=== PATIENT | female | born 1935 | race Caucasian/White ===

== ENCOUNTER 2017-06-22 05:02 | Emergency (ER) | payer MEDICARE, BC ==
[2017-06-22] MEDS: IBUPROFEN 600 MG TAB PO (05:43)
== END 2017-06-22 11:34 | disposition home or self-care (01) ==
LOC: E/R 05:02
DX: S09.90XA Unspecified injury of head, initial encounter (principal); S51.811A Laceration without foreign body of right forearm, initial encounter; I10 Essential (primary) hypertension; E11.9 Type 2 diabetes mellitus without complications; R51 Headache; W06.XXXA Fall from bed, initial encounter; Y92.9 Unspecified place or not applicable; Z79.82 Long term (current) use of aspirin; Z79.84 Long term (current) use of oral hypoglycemic drugs
CPT/HCPCS: 70450; 71045; 73110-RT; 99284-25

== ENCOUNTER 2017-06-23 12:43 | Inpatient (IN) | payer MEDICARE, BC ==
[2017-06-23 16:22] LABS: ADD MAN DIFF? NO
[2017-06-23 16:24] LABS: BASOPHIL # 0.1 10^3/ul (0.0-0.1); BASOPHILS % 0.5 % (0.0-2.0); EOSINOPHILS # 0.2 10^3/ul (0.0-0.5); EOSINOPHILS % 1.7 % (0.0-7.0); HEMATOCRIT 34.5 % (37.0-47.0); HEMOGLOBIN 10.8 g/dl (12.0-16.0); LYMPHOCYTES % 30.9 % (15.0-51.0); MEAN CORPUSCULAR HEMOGLOBIN 25.6 pg (29.0-33.0); MEAN CORPUSCULAR HGB CONC 31.3 g/dl (32.0-37.0); MEAN CORPUSCULAR VOLUME 81.8 fl (82.0-101.0); MEAN PLATELET VOLUME 9.2 fl (7.4-10.4); MONOCYTE # 0.8 10^3/ul (0.3-0.9); MONOCYTES % 6.2 % (0.0-11.0); NEUTROPHIL # 7.7 10^3/ul (1.6-7.5); PLATELET COUNT 288 10^3/UL (140-415); RED BLOOD COUNT 4.22 10^6/ul (4.20-5.40); RED CELL DISTRIBUTION WIDTH 14.3 % (11.5-14.5)
[2017-06-23 16:24] LABS: WHITE BLOOD COUNT 12.9 10^3/ul (4.8-10.8)
[2017-06-23] MEDS: ASPIRIN 325 MG TAB PO (16:35)
[2017-06-23 16:40] LABS: INR 0.93; PROTIME 12.6 Sec (11.9-14.9)
[2017-06-23 16:41] LABS: PARTIAL THROMBOPLASTIN TIME 28.6 Sec (25.0-35.0)
[2017-06-23 16:43] LABS: ALANINE AMINOTRANSFERASE 25 IU/L (13-69); ALBUMIN 4.1 g/dl (3.3-4.9); ALBUMIN/GLOBULIN RATIO 1.28; ALKALINE PHOSPHATASE 78 IU/L (42-121); ANION GAP 16 (8-16); ASPARTATE AMINO TRANSFERASE 15 IU/L (15-46); BILIRUBIN,INDIRECT 0.3 mg/dl (0-1.1); BILIRUBIN,TOTAL 0.3 mg/dl (0.2-1.3); BLOOD UREA NITROGEN 13 mg/dl (7-20); CALCIUM 9.1 mg/dl (8.4-10.2); CARBON DIOXIDE 30 mmol/L (21-31); CHLORIDE 102 mmol/L (97-110); CREATININE 0.75 mg/dl (0.44-1.00); GLUCOSE 92 mg/dl (70-220); POTASSIUM 3.5 mmol/L (3.5-5.1); SODIUM 144 mmol/L (135-144); TOTAL PROTEIN 7.3 g/dl (6.1-8.1)
[2017-06-23 16:56] LABS: TROPONIN-I < 0.012 ng/ml (0.00-0.12)
[2017-06-23] MEDS ORDERED: ACETAMINOPHEN 325 MG TAB PO (18:00)
[2017-06-23] MEDS ORDERED: ONDANSETRON 4 MG INJ IV (18:00)
[2017-06-23] MEDS ORDERED: GLUCAGON 1 MG INJ IM (23:00)
[2017-06-23] MEDS ORDERED: DEXTROSE 50% 50 ML SYRINGE IV ×2 (23:00)
[2017-06-23] MEDS ORDERED: ALPRAZOLAM 1 MG TAB PO (23:00)
[2017-06-23] MEDS ORDERED: MECLIZINE 25 MG TAB PO (23:00)
[2017-06-23] MEDS ORDERED: GLUCOSE GEL 15 GRAM TUBE BUCCAL (23:00)
[2017-06-23] MEDS ORDERED: GLUCOSE GEL 15 GRAM TUBE PO ×2 (23:00)
[2017-06-23] MEDS: CEFTRIAXONE 1 GM/50 ML (PMX) 50 ML IVPB (23:44)
[2017-06-24] MEDS: INSULIN ASPART [NOVOLOG] 3 ML PEN SC ×5 (08:00→20:30)
[2017-06-24 08:34] LABS: ADD MAN DIFF? NO
[2017-06-24 08:53] LABS: BASOPHILS % 0.4 % (0.0-2.0); EOSINOPHILS # 0.2 10^3/ul (0.0-0.5); EOSINOPHILS % 1.9 % (0.0-7.0); HEMATOCRIT 33.1 % (37.0-47.0); HEMOGLOBIN 10.5 g/dl (12.0-16.0); LYMPHOCYTES # 2.7 10^3/ul (0.8-2.9); LYMPHOCYTES % 29.5 % (15.0-51.0); MEAN CORPUSCULAR HEMOGLOBIN 25.9 pg (29.0-33.0); MEAN CORPUSCULAR HGB CONC 31.7 g/dl (32.0-37.0); MEAN CORPUSCULAR VOLUME 81.5 fl (82.0-101.0); MEAN PLATELET VOLUME 9.2 fl (7.4-10.4); MONOCYTE # 0.5 10^3/ul (0.3-0.9); MONOCYTES % 5.6 % (0.0-11.0); NEUTROPHIL # 5.6 10^3/ul (1.6-7.5); NEUTROPHILS % 61.8 % (39.0-77.0); PLATELET COUNT 278 10^3/UL (140-415); RED BLOOD COUNT 4.06 10^6/ul (4.20-5.40); RED CELL DISTRIBUTION WIDTH 14.2 % (11.5-14.5)
[2017-06-24] MEDS: ASPIRIN (EC) 325 MG TAB PO (09:05)
[2017-06-24] MEDS: metFORMIN 850 MG TAB PO ×2 (09:05→17:56)
[2017-06-24] MEDS: PAROXETINE 10 MG TAB PO (09:05)
[2017-06-24] MEDS: ENOXAPARIN 30 MG/0.3 ML SYG SC (09:07)
[2017-06-24 09:28] LABS: CHOL/HDL RATIO 6.8 RATIO; HDL CHOLESTEROL 32 mg/dl (33-92); LDL CHOLESTEROL,CALCULATED 153 mg/dl; TRIGLYCERIDES 177 mg/dl (0-149)
[2017-06-24 09:28] LABS: CHOLESTEROL 220 mg/dl (100-200)
[2017-06-24 09:40] LABS: ADD UMIC YES; UR ASCORBIC ACID NEGATIVE (NEGATIVE); UR BILIRUBIN (Dip) NEGATIVE (NEGATIVE); UR BLOOD (Dip) NEGATIVE (NEGATIVE); UR CLARITY CLEAR (CLEAR); UR COLOR YELLOW (YELLOW); UR GLUCOSE (Dip) NEGATIVE (NEGATIVE); UR KETONES (Dip) NEGATIVE (NEGATIVE); UR LEUKOCYTE ESTERASE (Dip) TRACE Leu/ul (NEGATIVE); UR MUCUS FEW /HPF (NONE SEEN); UR NITRITE (Dip) NEGATIVE (NEGATIVE); UR RBC 0 /HPF (0-5); UR SPECIFIC GRAVITY (Dip) 1.013 (1.003-1.030); UR TOTAL PROTEIN (Dip) NEGATIVE (NEGATIVE); UR UROBILINOGEN (Dip) NEGATIVE (NEGATIVE); UR WBC 3 /HPF (0-5)
[2017-06-24] MEDS: ACETAMINOPHEN 500 MG TAB PO (12:42)
[2017-06-24] MEDS: hydrALAzine 20 MG INJ IV (18:25)
[2017-06-24] MEDS: ATORVASTATIN 40 MG TAB PO (20:31)
[2017-06-24] MEDS: ALPRAZOLAM 0.25 MG TAB PO (20:59)
[2017-06-24] MEDS: CEFTRIAXONE 1 GM/50 ML (PMX) 50 ML IVPB (22:39)
[2017-06-25] MEDS: hydrALAzine 20 MG INJ IV ×2 (06:10→14:19)
[2017-06-25] MEDS: INSULIN ASPART [NOVOLOG] 3 ML PEN SC ×4 (08:00→20:37)
[2017-06-25] MEDS: ASPIRIN (EC) 325 MG TAB PO (08:14)
[2017-06-25] MEDS: metFORMIN 850 MG TAB PO ×2 (08:15→18:19)
[2017-06-25] MEDS: ACETAMINOPHEN 500 MG TAB PO (08:15)
[2017-06-25] MEDS: PAROXETINE 10 MG TAB PO (08:15)
[2017-06-25] MEDS: ENOXAPARIN 30 MG/0.3 ML SYG SC (08:17)
[2017-06-25 09:07] LABS: ADD MAN DIFF? NO
[2017-06-25 09:19] LABS: BASOPHIL # 0.1 10^3/ul (0.0-0.1); BASOPHILS % 0.6 % (0.0-2.0); EOSINOPHILS # 0.1 10^3/ul (0.0-0.5); EOSINOPHILS % 1.4 % (0.0-7.0); HEMATOCRIT 34.2 % (37.0-47.0); HEMOGLOBIN 11.3 g/dl (12.0-16.0); LYMPHOCYTES # 1.9 10^3/ul (0.8-2.9); LYMPHOCYTES % 18.6 % (15.0-51.0); MEAN CORPUSCULAR HEMOGLOBIN 26.3 pg (29.0-33.0); MEAN CORPUSCULAR VOLUME 79.5 fl (82.0-101.0); MEAN PLATELET VOLUME 9.8 fl (7.4-10.4); MONOCYTE # 0.6 10^3/ul (0.3-0.9); MONOCYTES % 5.6 % (0.0-11.0); NEUTROPHIL # 7.3 10^3/ul (1.6-7.5); NEUTROPHILS % 73.2 % (39.0-77.0); PLATELET COUNT 268 10^3/UL (140-415); RED CELL DISTRIBUTION WIDTH 14.5 % (11.5-14.5)
[2017-06-25 09:19] LABS: WHITE BLOOD COUNT 9.9 10^3/ul (4.8-10.8)
[2017-06-25 09:21] LABS: POSITIVE DIFF @See below
[2017-06-25 09:45] LABS: BLOOD UREA NITROGEN 14 mg/dl (7-20); CALCIUM 9.1 mg/dl (8.4-10.2); CARBON DIOXIDE 27 mmol/L (21-31); CHLORIDE 104 mmol/L (97-110); CREATININE 0.61 mg/dl (0.44-1.00); GLUCOSE 112 mg/dl (70-220); SODIUM 143 mmol/L (135-144)
[2017-06-25 09:48] LABS: ANION GAP 15 (8-16); POTASSIUM 3.4 mmol/L (3.5-5.1)
[2017-06-25] MEDS: ATORVASTATIN 40 MG TAB PO (20:38)
[2017-06-25] MEDS: ALPRAZOLAM 0.25 MG TAB PO (21:19)
[2017-06-26] MEDS: INSULIN ASPART [NOVOLOG] 3 ML PEN SC ×4 (08:00→20:56)
[2017-06-26] MEDS: metFORMIN 850 MG TAB PO ×2 (08:12→18:13)
[2017-06-26] MEDS: PAROXETINE 10 MG TAB PO (08:12)
[2017-06-26] MEDS: ASPIRIN (EC) 325 MG TAB PO (08:13)
[2017-06-26] MEDS: ENOXAPARIN 30 MG/0.3 ML SYG SC (08:14)
[2017-06-26 09:22] LABS: ADD MAN DIFF? NO
[2017-06-26 09:29] LABS: WHITE BLOOD COUNT 9.7 10^3/ul (4.8-10.8)
[2017-06-26 09:29] LABS: BASOPHIL # 0.1 10^3/ul (0.0-0.1); BASOPHILS % 0.5 % (0.0-2.0); EOSINOPHILS # 0.1 10^3/ul (0.0-0.5); EOSINOPHILS % 1.2 % (0.0-7.0); HEMATOCRIT 31.9 % (37.0-47.0); HEMOGLOBIN 10.2 g/dl (12.0-16.0); LYMPHOCYTES # 2.7 10^3/ul (0.8-2.9); MEAN CORPUSCULAR HEMOGLOBIN 25.4 pg (29.0-33.0); MEAN CORPUSCULAR VOLUME 79.6 fl (82.0-101.0); MEAN PLATELET VOLUME 9.4 fl (7.4-10.4); MONOCYTE # 0.8 10^3/ul (0.3-0.9); MONOCYTES % 7.9 % (0.0-11.0); PLATELET COUNT 268 10^3/UL (140-415); RED BLOOD COUNT 4.01 10^6/ul (4.20-5.40); RED CELL DISTRIBUTION WIDTH 14.9 % (11.5-14.5)
[2017-06-26 09:57] LABS: ANION GAP 13 (8-16); BLOOD UREA NITROGEN 17 mg/dl (7-20); CALCIUM 9.4 mg/dl (8.4-10.2); CARBON DIOXIDE 28 mmol/L (21-31); CHLORIDE 104 mmol/L (97-110); CREATININE 0.68 mg/dl (0.44-1.00); GLUCOSE 100 mg/dl (70-220); POTASSIUM 3.4 mmol/L (3.5-5.1); SODIUM 142 mmol/L (135-144)
[2017-06-26] MEDS: POTASSIUM CHLORIDE 20 MEQ POWDER FOR ORAL SOLN PO (17:14)
[2017-06-26] MEDS ORDERED: ONDANSETRON 4 MG INJ IV (20:55)
[2017-06-26] MEDS: ATORVASTATIN 40 MG TAB PO (21:00)
[2017-06-26] MEDS: hydrALAzine 20 MG INJ IV (21:09)
[2017-06-27] MEDS: PANTOPRAZOLE (EC) 40 MG TAB PO (05:55)
[2017-06-27] MEDS: ACETAMINOPHEN 500 MG TAB PO (06:44)
[2017-06-27 07:33] LABS: ADD MAN DIFF? NO
[2017-06-27 07:49] LABS: BASOPHIL # 0.1 10^3/ul (0.0-0.1); BASOPHILS % 0.5 % (0.0-2.0); EOSINOPHILS # 0.1 10^3/ul (0.0-0.5); EOSINOPHILS % 1.4 % (0.0-7.0); HEMATOCRIT 31.5 % (37.0-47.0); LYMPHOCYTES # 3.1 10^3/ul (0.8-2.9); LYMPHOCYTES % 30.8 % (15.0-51.0); MEAN CORPUSCULAR HEMOGLOBIN 25.4 pg (29.0-33.0); MEAN CORPUSCULAR HGB CONC 31.7 g/dl (32.0-37.0); MEAN CORPUSCULAR VOLUME 80.2 fl (82.0-101.0); MEAN PLATELET VOLUME 9.7 fl (7.4-10.4); MONOCYTE # 0.8 10^3/ul (0.3-0.9); MONOCYTES % 7.9 % (0.0-11.0); NEUTROPHIL # 5.9 10^3/ul (1.6-7.5); PLATELET COUNT 268 10^3/UL (140-415); RED BLOOD COUNT 3.93 10^6/ul (4.20-5.40); RED CELL DISTRIBUTION WIDTH 15.1 % (11.5-14.5)
[2017-06-27] MEDS: INSULIN ASPART [NOVOLOG] 3 ML PEN SC ×4 (08:00→20:17)
[2017-06-27 08:16] LABS: ANION GAP 15 (8-16); BLOOD UREA NITROGEN 19 mg/dl (7-20); CALCIUM 9.2 mg/dl (8.4-10.2); CARBON DIOXIDE 27 mmol/L (21-31); CHLORIDE 106 mmol/L (97-110); CREATININE 0.73 mg/dl (0.44-1.00); GLUCOSE 102 mg/dl (70-220); POTASSIUM 3.6 mmol/L (3.5-5.1); SODIUM 144 mmol/L (135-144)
[2017-06-27] MEDS: PAROXETINE 10 MG TAB PO (09:34)
[2017-06-27] MEDS: ASPIRIN (EC) 325 MG TAB PO (09:36)
[2017-06-27] MEDS: ENOXAPARIN 30 MG/0.3 ML SYG SC (09:40)
[2017-06-27] MEDS: metFORMIN 850 MG TAB PO ×2 (09:58→17:19)
[2017-06-27] MEDS: ATORVASTATIN 40 MG TAB PO (20:17)
[2017-06-27] MEDS: ALPRAZOLAM 0.25 MG TAB PO (21:18)
[2017-06-28] MEDS: PANTOPRAZOLE (EC) 40 MG TAB PO (06:18)
[2017-06-28] MEDS: INSULIN ASPART [NOVOLOG] 3 ML PEN SC ×4 (08:00→20:59)
[2017-06-28] MEDS: metFORMIN 850 MG TAB PO ×3 (08:00→17:25)
[2017-06-28] MEDS: ASPIRIN (EC) 325 MG TAB PO (08:53)
[2017-06-28] MEDS: ENOXAPARIN 30 MG/0.3 ML SYG SC (08:55)
[2017-06-28] MEDS: PAROXETINE 10 MG TAB PO ×2 (08:56→10:00)
[2017-06-28] MEDS: ATORVASTATIN 40 MG TAB PO (20:59)
[2017-06-28] MEDS: ALPRAZOLAM 0.25 MG TAB PO (21:00)
[2017-06-29] MEDS: PANTOPRAZOLE (EC) 40 MG TAB PO (05:51)
[2017-06-29] MEDS: INSULIN ASPART [NOVOLOG] 3 ML PEN SC ×4 (08:00→20:32)
[2017-06-29] MEDS: PAROXETINE 10 MG TAB PO (09:53)
[2017-06-29] MEDS: ASPIRIN (EC) 325 MG TAB PO (09:54)
[2017-06-29] MEDS: ENOXAPARIN 30 MG/0.3 ML SYG SC (09:54)
[2017-06-29] MEDS: metFORMIN 850 MG TAB PO ×2 (10:08→17:41)
[2017-06-29] MEDS: ATORVASTATIN 40 MG TAB PO (20:28)
[2017-06-29] MEDS: ALPRAZOLAM 0.25 MG TAB PO (20:31)
[2017-06-30] MEDS: PANTOPRAZOLE (EC) 40 MG TAB PO (06:51)
[2017-06-30] MEDS: INSULIN ASPART [NOVOLOG] 3 ML PEN SC ×4 (07:45→20:56)
[2017-06-30] MEDS: metFORMIN 850 MG TAB PO ×2 (07:46→18:05)
[2017-06-30] MEDS: PAROXETINE 10 MG TAB PO (09:04)
[2017-06-30] MEDS: ASPIRIN (EC) 325 MG TAB PO (09:04)
[2017-06-30] MEDS: ENOXAPARIN 30 MG/0.3 ML SYG SC (09:05)
[2017-06-30 09:10] LABS: ADD MAN DIFF? NO
[2017-06-30 09:35] LABS: ANION GAP 12 (8-16); BLOOD UREA NITROGEN 18 mg/dl (7-20); CALCIUM 9.2 mg/dl (8.4-10.2); CARBON DIOXIDE 30 mmol/L (21-31); CHLORIDE 105 mmol/L (97-110); CREATININE 0.62 mg/dl (0.44-1.00); GLUCOSE 96 mg/dl (70-220); POTASSIUM 3.5 mmol/L (3.5-5.1); SODIUM 143 mmol/L (135-144)
[2017-06-30 10:07] LABS: WHITE BLOOD COUNT 8.7 10^3/ul (4.8-10.8)
[2017-06-30 10:07] LABS: BASOPHILS % 0.5 % (0.0-2.0); EOSINOPHILS # 0.2 10^3/ul (0.0-0.5); EOSINOPHILS % 1.9 % (0.0-7.0); HEMATOCRIT 32.1 % (37.0-47.0); HEMOGLOBIN 10.1 g/dl (12.0-16.0); LYMPHOCYTES # 2.6 10^3/ul (0.8-2.9); LYMPHOCYTES % 30.2 % (15.0-51.0); MEAN CORPUSCULAR HEMOGLOBIN 25.5 pg (29.0-33.0); MEAN CORPUSCULAR HGB CONC 31.5 g/dl (32.0-37.0); MEAN CORPUSCULAR VOLUME 81.1 fl (82.0-101.0); MEAN PLATELET VOLUME 10.2 fl (7.4-10.4); MONOCYTE # 0.7 10^3/ul (0.3-0.9); MONOCYTES % 8.4 % (0.0-11.0); NEUTROPHIL # 5.1 10^3/ul (1.6-7.5); NEUTROPHILS % 58.4 % (39.0-77.0); PLATELET COUNT 258 10^3/UL (140-415); RED BLOOD COUNT 3.96 10^6/ul (4.20-5.40); RED CELL DISTRIBUTION WIDTH 15.3 % (11.5-14.5)
[2017-06-30] MEDS: LISINOPRIL 5 MG TAB PO (15:29)
[2017-06-30] MEDS: ATORVASTATIN 40 MG TAB PO (20:52)
[2017-06-30] MEDS: ALPRAZOLAM 0.25 MG TAB PO (20:53)
[2017-07-01] MEDS: PANTOPRAZOLE (EC) 40 MG TAB PO (07:18)
[2017-07-01] MEDS: INSULIN ASPART [NOVOLOG] 3 ML PEN SC ×4 (08:00→21:00)
[2017-07-01 08:08] LABS: ADD MAN DIFF? NO
[2017-07-01 08:16] LABS: BASOPHIL # 0.1 10^3/ul (0.0-0.1); BASOPHILS % 0.5 % (0.0-2.0); EOSINOPHILS # 0.2 10^3/ul (0.0-0.5); EOSINOPHILS % 2.3 % (0.0-7.0); HEMATOCRIT 32.3 % (37.0-47.0); HEMOGLOBIN 10.3 g/dl (12.0-16.0); LYMPHOCYTES % 33.1 % (15.0-51.0); MEAN CORPUSCULAR HEMOGLOBIN 25.9 pg (29.0-33.0); MEAN CORPUSCULAR HGB CONC 31.9 g/dl (32.0-37.0); MEAN CORPUSCULAR VOLUME 81.2 fl (82.0-101.0); MONOCYTE # 0.6 10^3/ul (0.3-0.9); NEUTROPHIL # 5.1 10^3/ul (1.6-7.5); NEUTROPHILS % 56.6 % (39.0-77.0); PLATELET COUNT 262 10^3/UL (140-415); RED BLOOD COUNT 3.98 10^6/ul (4.20-5.40); RED CELL DISTRIBUTION WIDTH 15.2 % (11.5-14.5)
[2017-07-01 08:16] LABS: WHITE BLOOD COUNT 9.1 10^3/ul (4.8-10.8)
[2017-07-01 08:32] LABS: ANION GAP 13 (8-16); BLOOD UREA NITROGEN 20 mg/dl (7-20); CALCIUM 9.1 mg/dl (8.4-10.2); CARBON DIOXIDE 29 mmol/L (21-31); CHLORIDE 105 mmol/L (97-110); CREATININE 0.69 mg/dl (0.44-1.00); GLUCOSE 87 mg/dl (70-220); POTASSIUM 3.4 mmol/L (3.5-5.1); SODIUM 144 mmol/L (135-144)
[2017-07-01] MEDS: metFORMIN 850 MG TAB PO ×2 (08:49→18:14)
[2017-07-01] MEDS: ASPIRIN (EC) 325 MG TAB PO (08:49)
[2017-07-01] MEDS: PAROXETINE 10 MG TAB PO (08:50)
[2017-07-01] MEDS: LISINOPRIL 5 MG TAB PO (08:51)
[2017-07-01] MEDS: ENOXAPARIN 30 MG/0.3 ML SYG SC (08:57)
[2017-07-01] MEDS ORDERED: POTASSIUM CHLORIDE (SR) 8 MEQ CAP PO (12:00)
[2017-07-01] MEDS: POTASSIUM CHLORIDE (SR) 20 MEQ TAB PO (12:11)
[2017-07-01] MEDS: ATORVASTATIN 40 MG TAB PO (20:14)
[2017-07-01] MEDS: ALPRAZOLAM 0.25 MG TAB PO (20:18)
[2017-07-02] MEDS: PANTOPRAZOLE (EC) 40 MG TAB PO (06:22)
[2017-07-02] MEDS: metFORMIN 850 MG TAB PO ×2 (08:00→17:31)
[2017-07-02] MEDS: INSULIN ASPART [NOVOLOG] 3 ML PEN SC ×4 (08:00→21:00)
[2017-07-02] MEDS: PAROXETINE 10 MG TAB PO (08:26)
[2017-07-02] MEDS: ENOXAPARIN 30 MG/0.3 ML SYG SC (08:28)
[2017-07-02] MEDS: ASPIRIN (EC) 325 MG TAB PO (08:28)
[2017-07-02] MEDS: LISINOPRIL 5 MG TAB PO (08:29)
[2017-07-02] MEDS: ATORVASTATIN 40 MG TAB PO (20:42)
[2017-07-02] MEDS: ACETAMINOPHEN 500 MG TAB PO (20:42)
[2017-07-02] MEDS: ALPRAZOLAM 0.25 MG TAB PO (20:47)
[2017-07-03] MEDS: PANTOPRAZOLE (EC) 40 MG TAB PO (06:33)
[2017-07-03] MEDS: INSULIN ASPART [NOVOLOG] 3 ML PEN SC ×4 (08:00→21:00)
[2017-07-03] MEDS: PAROXETINE 10 MG TAB PO (09:02)
[2017-07-03] MEDS: LISINOPRIL 5 MG TAB PO ×2 (09:03→21:26)
[2017-07-03] MEDS: metFORMIN 850 MG TAB PO ×2 (09:03→17:13)
[2017-07-03] MEDS: ASPIRIN (EC) 325 MG TAB PO (09:03)
[2017-07-03] MEDS: ENOXAPARIN 30 MG/0.3 ML SYG SC (09:06)
[2017-07-03] MEDS: ACETAMINOPHEN 500 MG TAB PO (11:04)
[2017-07-03] MEDS: ATORVASTATIN 40 MG TAB PO (21:25)
[2017-07-03] MEDS: ALPRAZOLAM 0.25 MG TAB PO (21:33)
[2017-07-04] MEDS: PANTOPRAZOLE (EC) 40 MG TAB PO (06:01)
[2017-07-04 07:45] LABS: ADD MAN DIFF? NO
[2017-07-04 07:49] LABS: BASOPHIL # 0.1 10^3/ul (0.0-0.1); BASOPHILS % 0.6 % (0.0-2.0); EOSINOPHILS # 0.2 10^3/ul (0.0-0.5); EOSINOPHILS % 1.7 % (0.0-7.0); HEMATOCRIT 30.8 % (37.0-47.0); HEMOGLOBIN 9.9 g/dl (12.0-16.0); LYMPHOCYTES # 3.2 10^3/ul (0.8-2.9); MEAN CORPUSCULAR HEMOGLOBIN 25.7 pg (29.0-33.0); MEAN CORPUSCULAR HGB CONC 32.1 g/dl (32.0-37.0); MONOCYTE # 0.8 10^3/ul (0.3-0.9); MONOCYTES % 7.8 % (0.0-11.0); NEUTROPHIL # 6.3 10^3/ul (1.6-7.5); NEUTROPHILS % 59.4 % (39.0-77.0); PLATELET COUNT 272 10^3/UL (140-415); RED BLOOD COUNT 3.85 10^6/ul (4.20-5.40); RED CELL DISTRIBUTION WIDTH 15.2 % (11.5-14.5)
[2017-07-04 07:49] LABS: WHITE BLOOD COUNT 10.6 10^3/ul (4.8-10.8)
[2017-07-04] MEDS: INSULIN ASPART [NOVOLOG] 3 ML PEN SC ×2 (08:00→12:00)
[2017-07-04 08:26] LABS: ANION GAP 11 (8-16); BLOOD UREA NITROGEN 17 mg/dl (7-20); CALCIUM 9.3 mg/dl (8.4-10.2); CARBON DIOXIDE 31 mmol/L (21-31); CHLORIDE 102 mmol/L (97-110); GLUCOSE 101 mg/dl (70-220); POTASSIUM 3.4 mmol/L (3.5-5.1); SODIUM 141 mmol/L (135-144)
[2017-07-04] MEDS: NA PHOSPHATE/BIPHOS 133 ML ENEMA PR (09:00)
[2017-07-04] MEDS: LISINOPRIL 5 MG TAB PO (09:59)
[2017-07-04] MEDS: PAROXETINE 10 MG TAB PO (09:59)
[2017-07-04] MEDS: ASPIRIN (EC) 325 MG TAB PO (10:00)
[2017-07-04] MEDS: SENNA TAB PO (10:00)
[2017-07-04] MEDS: BISACODYL 10 MG SUPP PR (10:00)
[2017-07-04] MEDS: ENOXAPARIN 30 MG/0.3 ML SYG SC (10:03)
[2017-07-04] MEDS: metFORMIN 850 MG TAB PO (12:16)
[2017-07-04] MEDS: POTASSIUM CHLORIDE (SR) 20 MEQ TAB PO (12:17)
== END 2017-07-04 15:03 | DRG 309 ==
LOC: MS4 20:07 → E/R 12:43 → MS4 17:33
DX: I48.0 Paroxysmal atrial fibrillation (principal); I50.30 Unspecified diastolic (congestive) heart failure; E11.8 Type 2 diabetes mellitus with unspecified complications; I11.0 Hypertensive heart disease with heart failure; Z91.81 History of falling; F41.8 Other specified anxiety disorders
CPT/HCPCS: 36415; 71045; 80048; 80053; 80061; 81001; 82962; 83036; 84443; 84484; 85025; 85610; 85730; 87081; 87086; 93005; 93306; 97110; 97116; 97163; 97530; 99285-25; G0378

== ENCOUNTER 2017-08-17 19:51 | Inpatient (IN) | payer MEDICARE, BC ==
[2017-08-17 21:45] LABS: ADD MAN DIFF? NO
[2017-08-17 21:50] LABS: WHITE BLOOD COUNT 13.4 10^3/ul (4.8-10.8)
[2017-08-17 21:50] LABS: BASOPHIL # 0.1 10^3/ul (0.0-0.1); BASOPHILS % 0.5 % (0.0-2.0); EOSINOPHILS # 0.3 10^3/ul (0.0-0.5); EOSINOPHILS % 2.3 % (0.0-7.0); HEMOGLOBIN 11.6 g/dl (12.0-16.0); LYMPHOCYTES # 4.2 10^3/ul (0.8-2.9); LYMPHOCYTES % 31.5 % (15.0-51.0); MEAN CORPUSCULAR HGB CONC 32.2 g/dl (32.0-37.0); MEAN CORPUSCULAR VOLUME 77.6 fl (82.0-101.0); MEAN PLATELET VOLUME 9.4 fl (7.4-10.4); MONOCYTES % 7.3 % (0.0-11.0); NEUTROPHIL # 7.7 10^3/ul (1.6-7.5); PLATELET COUNT 306 10^3/UL (140-415); RED BLOOD COUNT 4.64 10^6/ul (4.20-5.40); RED CELL DISTRIBUTION WIDTH 15.9 % (11.5-14.5)
[2017-08-17 22:12] LABS: ANION GAP 17 (8-16); BLOOD UREA NITROGEN 23 mg/dl (7-20); CALCIUM 9.2 mg/dl (8.4-10.2); CARBON DIOXIDE 30 mmol/L (21-31); CHLORIDE 99 mmol/L (97-110); CREATININE 0.84 mg/dl (0.44-1.00); GLUCOSE 83 mg/dl (70-220); POTASSIUM 3.9 mmol/L (3.5-5.1); SODIUM 142 mmol/L (135-144)
[2017-08-17 22:24] LABS: TROPONIN-I < 0.012 ng/ml (0.00-0.12)
[2017-08-17 22:30] LABS: ADD UMIC NO; UR ASCORBIC ACID NEGATIVE (NEGATIVE); UR BILIRUBIN (Dip) NEGATIVE (NEGATIVE); UR BLOOD (Dip) NEGATIVE (NEGATIVE); UR CLARITY CLEAR (CLEAR); UR COLOR YELLOW (YELLOW); UR GLUCOSE (Dip) NEGATIVE (NEGATIVE); UR KETONES (Dip) NEGATIVE (NEGATIVE); UR LEUKOCYTE ESTERASE (Dip) NEGATIVE Leu/ul (NEGATIVE); UR NITRITE (Dip) NEGATIVE (NEGATIVE); UR SPECIFIC GRAVITY (Dip) 1.015 (1.003-1.030); UR TOTAL PROTEIN (Dip) NEGATIVE (NEGATIVE); UR UROBILINOGEN (Dip) 1+ mg/dL (NEGATIVE)
[2017-08-18] MEDS ORDERED: ONDANSETRON 4 MG INJ IV
[2017-08-18] MEDS ORDERED: ACETAMINOPHEN 325 MG TAB PO
[2017-08-18] MEDS: SOD CHLORIDE 0.9% 1,000 ML IV (00:46)
[2017-08-18] MEDS ORDERED: MECLIZINE 25 MG TAB PO (05:30)
[2017-08-18] MEDS ORDERED: ACETAMINOPHEN 500 MG TAB PO (05:30)
[2017-08-18] MEDS ORDERED: GLUCOSE GEL 15 GRAM TUBE BUCCAL (06:00)
[2017-08-18] MEDS ORDERED: DEXTROSE 50% 50 ML SYRINGE IV ×2 (06:00)
[2017-08-18] MEDS ORDERED: GLUCAGON 1 MG INJ IM (06:00)
[2017-08-18] MEDS ORDERED: GLUCOSE GEL 15 GRAM TUBE PO ×2 (06:00)
[2017-08-18] MEDS: LEVOFLOXACIN 500MG/D5W (PMX) 100 ML IVPB (06:30)
[2017-08-18] MEDS: INSULIN ASPART [NOVOLOG] 3 ML PEN SC ×4 (08:20→21:00)
[2017-08-18] MEDS: ASPIRIN (EC) 325 MG TAB PO (10:42)
[2017-08-18] MEDS: SENNA TAB PO ×2 (10:42→21:00)
[2017-08-18] MEDS: metFORMIN 850 MG TAB PO (10:42)
[2017-08-18] MEDS: PAROXETINE 10 MG TAB PO (10:42)
[2017-08-18] MEDS: LISINOPRIL 5 MG TAB PO ×2 (10:43→21:28)
[2017-08-18] MEDS: ENOXAPARIN 40 MG/0.4 ML SYG SC (10:46)
[2017-08-18] MEDS: PANTOPRAZOLE (EC) 40 MG TAB PO (10:49)
[2017-08-18] MEDS: LEVALBUTEROL (NEB) 0.63 MG/3 ML AMP HHN (20:28)
[2017-08-18] MEDS: ATORVASTATIN 40 MG TAB PO (21:24)
[2017-08-18] MEDS: ALPRAZOLAM 1 MG TAB PO (21:32)
[2017-08-19] MEDS: ACCU-CHEK XX (01:43)
[2017-08-19] MEDS: LEVOFLOXACIN 500MG/D5W (PMX) 100 ML IVPB (05:38)
[2017-08-19 05:56] LABS: ADD MAN DIFF? NO; BASOPHIL # 0.1 10^3/ul (0.0-0.1); BASOPHILS % 0.5 % (0.0-2.0); EOSINOPHILS # 0.2 10^3/ul (0.0-0.5); EOSINOPHILS % 2.1 % (0.0-7.0); HEMATOCRIT 32.6 % (37.0-47.0); HEMOGLOBIN 10.6 g/dl (12.0-16.0); LYMPHOCYTES # 3.2 10^3/ul (0.8-2.9); LYMPHOCYTES % 33.9 % (15.0-51.0); MEAN CORPUSCULAR HEMOGLOBIN 25.4 pg (29.0-33.0); MEAN CORPUSCULAR HGB CONC 32.5 g/dl (32.0-37.0); MEAN PLATELET VOLUME 9.9 fl (7.4-10.4); MONOCYTE # 0.7 10^3/ul (0.3-0.9); MONOCYTES % 7.3 % (0.0-11.0); NEUTROPHIL # 5.4 10^3/ul (1.6-7.5); NEUTROPHILS % 55.9 % (39.0-77.0); PLATELET COUNT 238 10^3/UL (140-415); RED BLOOD COUNT 4.18 10^6/ul (4.20-5.40); RED CELL DISTRIBUTION WIDTH 15.8 % (11.5-14.5)
[2017-08-19 05:56] LABS: WHITE BLOOD COUNT 9.6 10^3/ul (4.8-10.8)
[2017-08-19 06:21] LABS: ANION GAP 11 (8-16); BLOOD UREA NITROGEN 15 mg/dl (7-20); CALCIUM 8.8 mg/dl (8.4-10.2); CARBON DIOXIDE 33 mmol/L (21-31); CHLORIDE 103 mmol/L (97-110); CREATININE 0.76 mg/dl (0.44-1.00); GLUCOSE 87 mg/dl (70-220); POTASSIUM 3.3 mmol/L (3.5-5.1); SODIUM 144 mmol/L (135-144)
[2017-08-19] MEDS: INSULIN ASPART [NOVOLOG] 3 ML PEN SC ×4 (08:06→20:27)
[2017-08-19] MEDS: metFORMIN 850 MG TAB PO (08:07)
[2017-08-19] MEDS: PANTOPRAZOLE (EC) 40 MG TAB PO (08:07)
[2017-08-19] MEDS: ASPIRIN (EC) 325 MG TAB PO (08:09)
[2017-08-19] MEDS: SENNA TAB PO ×3 (08:09→20:27)
[2017-08-19] MEDS: PAROXETINE 10 MG TAB PO (08:10)
[2017-08-19] MEDS: ENOXAPARIN 40 MG/0.4 ML SYG SC (08:10)
[2017-08-19] MEDS: LISINOPRIL 5 MG TAB PO ×2 (08:10→20:27)
[2017-08-19] MEDS: LEVALBUTEROL (NEB) 0.63 MG/3 ML AMP HHN ×2 (08:15→19:30)
[2017-08-19] MEDS: POTASSIUM CHLORIDE (SR) 20 MEQ TAB PO (12:17)
[2017-08-19] MEDS: ALPRAZOLAM 1 MG TAB PO (20:26)
[2017-08-19] MEDS: ATORVASTATIN 40 MG TAB PO (20:26)
[2017-08-20] MEDS: ACCU-CHEK XX (01:31)
[2017-08-20] MEDS: hydrALAzine 20 MG INJ IV (02:35)
[2017-08-20] MEDS: LEVOFLOXACIN 500 MG TAB PO (06:01)
[2017-08-20 06:09] LABS: ADD MAN DIFF? NO
[2017-08-20 06:12] LABS: WHITE BLOOD COUNT 8.3 10^3/ul (4.8-10.8)
[2017-08-20 06:12] LABS: BASOPHIL # 0.1 10^3/ul (0.0-0.1); BASOPHILS % 0.6 % (0.0-2.0); EOSINOPHILS # 0.3 10^3/ul (0.0-0.5); EOSINOPHILS % 3.1 % (0.0-7.0); HEMATOCRIT 35.2 % (37.0-47.0); HEMOGLOBIN 11.4 g/dl (12.0-16.0); LYMPHOCYTES % 36.3 % (15.0-51.0); MEAN CORPUSCULAR HEMOGLOBIN 25.2 pg (29.0-33.0); MEAN CORPUSCULAR HGB CONC 32.4 g/dl (32.0-37.0); MEAN CORPUSCULAR VOLUME 77.7 fl (82.0-101.0); MEAN PLATELET VOLUME 9.2 fl (7.4-10.4); MONOCYTE # 0.7 10^3/ul (0.3-0.9); MONOCYTES % 8.1 % (0.0-11.0); NEUTROPHIL # 4.3 10^3/ul (1.6-7.5); NEUTROPHILS % 51.4 % (39.0-77.0); PLATELET COUNT 229 10^3/UL (140-415); RED BLOOD COUNT 4.53 10^6/ul (4.20-5.40); RED CELL DISTRIBUTION WIDTH 15.9 % (11.5-14.5)
[2017-08-20 06:51] LABS: ANION GAP 13 (8-16); BLOOD UREA NITROGEN 15 mg/dl (7-20); CARBON DIOXIDE 30 mmol/L (21-31); CHLORIDE 107 mmol/L (97-110); CREATININE 0.67 mg/dl (0.44-1.00); GLUCOSE 88 mg/dl (70-220); POTASSIUM 3.3 mmol/L (3.5-5.1); SODIUM 147 mmol/L (135-144)
[2017-08-20] MEDS: INSULIN ASPART [NOVOLOG] 3 ML PEN SC ×4 (08:06→20:25)
[2017-08-20] MEDS: PAROXETINE 10 MG TAB PO (08:07)
[2017-08-20] MEDS: metFORMIN 850 MG TAB PO (08:09)
[2017-08-20] MEDS: ENOXAPARIN 40 MG/0.4 ML SYG SC (08:09)
[2017-08-20] MEDS: ONDANSETRON 4 MG TAB PO (08:09)
[2017-08-20] MEDS: ASPIRIN (EC) 325 MG TAB PO (08:10)
[2017-08-20] MEDS: PANTOPRAZOLE (EC) 40 MG TAB PO (08:10)
[2017-08-20] MEDS: LISINOPRIL 5 MG TAB PO (08:13)
[2017-08-20] MEDS: SENNA TAB PO ×2 (09:00→20:23)
[2017-08-20] MEDS: LEVALBUTEROL (NEB) 0.63 MG/3 ML AMP HHN ×2 (09:15→19:47)
[2017-08-20] MEDS: POTASSIUM CHLORIDE (SR) 10 MEQ TAB PO (13:48)
[2017-08-20] MEDS: POTASSIUM CHLORIDE (SR) 20 MEQ TAB PO (13:48)
[2017-08-20] MEDS: ATORVASTATIN 40 MG TAB PO (20:22)
[2017-08-20] MEDS: ALPRAZOLAM 1 MG TAB PO (20:23)
[2017-08-20] MEDS: LISINOPRIL 10 MG TAB PO (20:23)
[2017-08-21] MEDS: ACCU-CHEK XX (01:44)
[2017-08-21] MEDS: LEVOFLOXACIN 500 MG TAB PO (05:54)
[2017-08-21 06:34] LABS: ADD MAN DIFF? NO
[2017-08-21 06:36] LABS: WHITE BLOOD COUNT 8.4 10^3/ul (4.8-10.8)
[2017-08-21 06:36] LABS: BASOPHIL # 0.1 10^3/ul (0.0-0.1); BASOPHILS % 0.8 % (0.0-2.0); EOSINOPHILS # 0.3 10^3/ul (0.0-0.5); EOSINOPHILS % 3.8 % (0.0-7.0); HEMATOCRIT 33.9 % (37.0-47.0); HEMOGLOBIN 10.9 g/dl (12.0-16.0); LYMPHOCYTES # 3.1 10^3/ul (0.8-2.9); LYMPHOCYTES % 37.3 % (15.0-51.0); MEAN CORPUSCULAR HEMOGLOBIN 25.3 pg (29.0-33.0); MEAN CORPUSCULAR HGB CONC 32.2 g/dl (32.0-37.0); MEAN CORPUSCULAR VOLUME 78.7 fl (82.0-101.0); MEAN PLATELET VOLUME 9.4 fl (7.4-10.4); MONOCYTE # 0.7 10^3/ul (0.3-0.9); NEUTROPHIL # 4.2 10^3/ul (1.6-7.5); NEUTROPHILS % 49.6 % (39.0-77.0); PLATELET COUNT 240 10^3/UL (140-415); RED BLOOD COUNT 4.31 10^6/ul (4.20-5.40)
[2017-08-21 06:57] LABS: ANION GAP 13 (8-16); BLOOD UREA NITROGEN 17 mg/dl (7-20); CALCIUM 9.1 mg/dl (8.4-10.2); CARBON DIOXIDE 32 mmol/L (21-31); CHLORIDE 105 mmol/L (97-110); CREATININE 0.73 mg/dl (0.44-1.00); GLUCOSE 86 mg/dl (70-220); POTASSIUM 3.6 mmol/L (3.5-5.1); SODIUM 146 mmol/L (135-144)
[2017-08-21] MEDS: INSULIN ASPART [NOVOLOG] 3 ML PEN SC ×4 (08:15→21:00)
[2017-08-21] MEDS: SENNA TAB PO ×2 (08:39→21:00)
[2017-08-21] MEDS: PANTOPRAZOLE (EC) 40 MG TAB PO (08:39)
[2017-08-21] MEDS: ASPIRIN (EC) 325 MG TAB PO (08:39)
[2017-08-21] MEDS: metFORMIN 850 MG TAB PO (08:40)
[2017-08-21] MEDS: LISINOPRIL 10 MG TAB PO ×2 (08:40→21:18)
[2017-08-21] MEDS: PAROXETINE 10 MG TAB PO (08:40)
[2017-08-21] MEDS: ENOXAPARIN 40 MG/0.4 ML SYG SC (08:47)
[2017-08-21] MEDS: LEVALBUTEROL (NEB) 0.63 MG/3 ML AMP HHN ×2 (09:17→20:12)
[2017-08-21] MEDS: ATORVASTATIN 40 MG TAB PO (21:17)
== END 2017-08-21 22:10 | DRG 913 ==
LOC: E/R 08-18 03:14 → MS2 23:54
DX: S09.90XA Unspecified injury of head, initial encounter (principal); J18.9 Pneumonia, unspecified organism; W19.XXXA Unspecified fall, initial encounter; Z91.81 History of falling; Y92.129 Unspecified place in nursing home as the place of occurrence of the external cause; I48.0 Paroxysmal atrial fibrillation; I10 Essential (primary) hypertension; E78.2 Mixed hyperlipidemia; E86.0 Dehydration; D64.9 Anemia, unspecified; E11.9 Type 2 diabetes mellitus without complications; F41.9 Anxiety disorder, unspecified
CPT/HCPCS: 36415; 70450; 71045; 72125; 80048; 81003; 82962; 84443; 84484; 85025; 87081; 93005; 94640; 94664; 97110; 97116; 97162; 97530; 99285-25

== ENCOUNTER 2017-09-08 18:58 | Emergency (ER) | payer MEDICARE, BC ==
[2017-09-08 19:40] LABS: ADD MAN DIFF? NO
[2017-09-08 19:42] LABS: BASOPHIL # 0.1 10^3/ul (0.0-0.1); BASOPHILS % 0.4 % (0.0-2.0); EOSINOPHILS # 0.4 10^3/ul (0.0-0.5); EOSINOPHILS % 2.6 % (0.0-7.0); HEMATOCRIT 35.8 % (37.0-47.0); HEMOGLOBIN 11.9 g/dl (12.0-16.0); LYMPHOCYTES # 3.8 10^3/ul (0.8-2.9); LYMPHOCYTES % 26.4 % (15.0-51.0); MEAN CORPUSCULAR HEMOGLOBIN 25.6 pg (29.0-33.0); MEAN CORPUSCULAR HGB CONC 33.2 g/dl (32.0-37.0); MEAN PLATELET VOLUME 9.1 fl (7.4-10.4); MONOCYTE # 0.7 10^3/ul (0.3-0.9); MONOCYTES % 4.9 % (0.0-11.0); NEUTROPHIL # 9.4 10^3/ul (1.6-7.5); NEUTROPHILS % 65.1 % (39.0-77.0); PLATELET COUNT 300 10^3/UL (140-415); RED BLOOD COUNT 4.65 10^6/ul (4.20-5.40); RED CELL DISTRIBUTION WIDTH 16.4 % (11.5-14.5)
[2017-09-08 19:42] LABS: WHITE BLOOD COUNT 14.4 10^3/ul (4.8-10.8)
[2017-09-08 20:08] LABS: ANION GAP 16 (8-16); BLOOD UREA NITROGEN 22 mg/dl (7-20); CALCIUM 9.3 mg/dl (8.4-10.2); CARBON DIOXIDE 27 mmol/L (21-31); CHLORIDE 104 mmol/L (97-110); CREATININE 0.74 mg/dl (0.44-1.00); GLUCOSE 113 mg/dl (70-220); POTASSIUM 3.7 mmol/L (3.5-5.1); SODIUM 143 mmol/L (135-144)
[2017-09-08 20:11] LABS: INR 0.96; PROTIME 12.9 Sec (11.9-14.9)
[2017-09-08 20:12] LABS: PARTIAL THROMBOPLASTIN TIME 28.1 Sec (25.0-35.0)
[2017-09-08 20:32] LABS: TROPONIN-I < 0.012 ng/ml (0.00-0.12)
[2017-09-08] MEDS: SOD CHLORIDE 0.9% 500 ML IV (20:50)
[2017-09-08 22:53] LABS: URINE PH (Dip) POC 5.5 (5.0-8.5)
[2017-09-08 22:53] LABS: URINE BLOOD (Dip) POC Trace-intact (NEGATIVE); URINE GLUCOSE (Dip) POC Negative (NEGATIVE); URINE KETONES (Dip) POC Trace (NEGATIVE); URINE LEUKOCYTE EST (Dip) POC Negative (NEGATIVE); URINE NITRITE (Dip) POC Negative (NEGATIVE); URINE TOTAL PROTEIN POC Negative (NEGATIVE)
[2017-09-08 23:12] LABS: ADD UMIC NO; UR ASCORBIC ACID NEGATIVE (NEGATIVE); UR BILIRUBIN (Dip) NEGATIVE (NEGATIVE); UR BLOOD (Dip) NEGATIVE (NEGATIVE); UR CLARITY CLEAR (CLEAR); UR COLOR YELLOW (YELLOW); UR GLUCOSE (Dip) NEGATIVE (NEGATIVE); UR KETONES (Dip) NEGATIVE (NEGATIVE); UR LEUKOCYTE ESTERASE (Dip) NEGATIVE Leu/ul (NEGATIVE); UR NITRITE (Dip) NEGATIVE (NEGATIVE); UR SPECIFIC GRAVITY (Dip) 1.021 (1.003-1.030); UR TOTAL PROTEIN (Dip) NEGATIVE (NEGATIVE); UR UROBILINOGEN (Dip) NEGATIVE (NEGATIVE)
== END 2017-09-09 00:34 | disposition home or self-care (01) ==
LOC: E/R 09-09 00:34
DX: S80.02XA Contusion of left knee, initial encounter (principal); S09.90XA Unspecified injury of head, initial encounter; I10 Essential (primary) hypertension; E11.9 Type 2 diabetes mellitus without complications; W18.09XA Striking against other object with subsequent fall, initial encounter; Y92.9 Unspecified place or not applicable; Z79.4 Long term (current) use of insulin; Z79.82 Long term (current) use of aspirin
CPT/HCPCS: 70450; 71045; 73562; 80048; 81003; 84484; 85025; 85610; 85730; 93005; 99285-25

== ENCOUNTER 2017-09-19 16:35 | Emergency (ER) | payer MEDICARE, BC ==
[2017-09-19 17:44] LABS: ADD MAN DIFF? NO
[2017-09-19 17:47] LABS: WHITE BLOOD COUNT 13.1 10^3/ul (4.8-10.8)
[2017-09-19 17:47] LABS: BASOPHIL # 0.1 10^3/ul (0.0-0.1); BASOPHILS % 0.5 % (0.0-2.0); EOSINOPHILS # 0.3 10^3/ul (0.0-0.5); EOSINOPHILS % 2.1 % (0.0-7.0); HEMATOCRIT 37.3 % (37.0-47.0); HEMOGLOBIN 12.1 g/dl (12.0-16.0); LYMPHOCYTES # 3.3 10^3/ul (0.8-2.9); MEAN CORPUSCULAR HEMOGLOBIN 25.3 pg (29.0-33.0); MEAN CORPUSCULAR HGB CONC 32.4 g/dl (32.0-37.0); MEAN CORPUSCULAR VOLUME 77.9 fl (82.0-101.0); MEAN PLATELET VOLUME 9.4 fl (7.4-10.4); MONOCYTE # 0.9 10^3/ul (0.3-0.9); MONOCYTES % 6.9 % (0.0-11.0); NEUTROPHIL # 8.5 10^3/ul (1.6-7.5); PLATELET COUNT 333 10^3/UL (140-415); RED BLOOD COUNT 4.79 10^6/ul (4.20-5.40); RED CELL DISTRIBUTION WIDTH 16.9 % (11.5-14.5)
[2017-09-19] MEDS: ONDANSETRON 4 MG INJ IV (17:57)
[2017-09-19 17:58] LABS: ADD UMIC YES; UR ASCORBIC ACID NEGATIVE (NEGATIVE); UR BILIRUBIN (Dip) NEGATIVE (NEGATIVE); UR BLOOD (Dip) 3+ mg/dL (NEGATIVE); UR CLARITY SLIGHTLY CLOUDY (CLEAR); UR COLOR YELLOW (YELLOW); UR GLUCOSE (Dip) NEGATIVE (NEGATIVE); UR KETONES (Dip) NEGATIVE (NEGATIVE); UR LEUKOCYTE ESTERASE (Dip) 2+ Leu/ul (NEGATIVE); UR NITRITE (Dip) NEGATIVE (NEGATIVE); UR RBC > 182 /HPF (0-5); UR SPECIFIC GRAVITY (Dip) 1.023 (1.003-1.030); UR TOTAL PROTEIN (Dip) 2+ mg/dl (NEGATIVE); UR UROBILINOGEN (Dip) NEGATIVE (NEGATIVE); UR WBC > 182 /HPF (0-5)
[2017-09-19] MEDS: SOD CHLORIDE 0.9% 1,000 ML IV (18:00)
[2017-09-19 18:07] LABS: ANION GAP 14 (8-16); BLOOD UREA NITROGEN 18 mg/dl (7-20); CALCIUM 9.5 mg/dl (8.4-10.2); CARBON DIOXIDE 30 mmol/L (21-31); CHLORIDE 104 mmol/L (97-110); CREATININE 0.67 mg/dl (0.44-1.00); GLUCOSE 108 mg/dl (70-220); POTASSIUM 3.7 mmol/L (3.5-5.1); SODIUM 144 mmol/L (135-144)
[2017-09-19] MEDS: CEFEPIME 2GM/50 ML (PMX) 50 ML IVPB (19:28)
[2017-09-19] MEDS: morphine 4 MG/ML VIAL IV (20:32)
== END 2017-09-19 21:44 | disposition home or self-care (01) ==
LOC: E/R 16:35
DX: N39.0 Urinary tract infection, site not specified (principal); E11.9 Type 2 diabetes mellitus without complications; Z79.84 Long term (current) use of oral hypoglycemic drugs; Z79.82 Long term (current) use of aspirin; Z79.4 Long term (current) use of insulin
CPT/HCPCS: 36415; 80048; 81001; 85025; 96374; 96375; 99284-25

== ENCOUNTER 2017-09-26 15:51 | Inpatient (IN) | payer MEDICARE, OTHER, BC ==
[2017-09-26 17:11] LABS: ADD MAN DIFF? NO
[2017-09-26 17:21] LABS: WHITE BLOOD COUNT 18.2 10^3/ul (4.8-10.8)
[2017-09-26 17:21] LABS: BASOPHILS % 0.2 % (0.0-2.0); EOSINOPHILS # 0.5 10^3/ul (0.0-0.5); EOSINOPHILS % 2.9 % (0.0-7.0); HEMATOCRIT 37.5 % (37.0-47.0); HEMOGLOBIN 12.2 g/dl (12.0-16.0); LYMPHOCYTES # 1.1 10^3/ul (0.8-2.9); MEAN CORPUSCULAR HEMOGLOBIN 25.6 pg (29.0-33.0); MEAN CORPUSCULAR HGB CONC 32.5 g/dl (32.0-37.0); MEAN CORPUSCULAR VOLUME 78.8 fl (82.0-101.0); MEAN PLATELET VOLUME 9.8 fl (7.4-10.4); MONOCYTE # 0.8 10^3/ul (0.3-0.9); MONOCYTES % 4.2 % (0.0-11.0); NEUTROPHIL # 15.6 10^3/ul (1.6-7.5); NEUTROPHILS % 85.9 % (39.0-77.0); PLATELET COUNT 296 10^3/UL (140-415); RED BLOOD COUNT 4.76 10^6/ul (4.20-5.40); RED CELL DISTRIBUTION WIDTH 17.7 % (11.5-14.5)
[2017-09-26 17:46] LABS: ALANINE AMINOTRANSFERASE 15 IU/L (13-69); ALBUMIN 3.3 g/dl (3.3-4.9); ALBUMIN/GLOBULIN RATIO 1.26; ALKALINE PHOSPHATASE 64 IU/L (42-121); ANION GAP 15 (8-16); ASPARTATE AMINO TRANSFERASE 9 IU/L (15-46); BILIRUBIN,INDIRECT 0.6 mg/dl (0-1.1); BILIRUBIN,TOTAL 0.6 mg/dl (0.2-1.3); BLOOD UREA NITROGEN 16 mg/dl (7-20); CALCIUM 8.7 mg/dl (8.4-10.2); CARBON DIOXIDE 29 mmol/L (21-31); CHLORIDE 95 mmol/L (97-110); CREATININE 0.64 mg/dl (0.44-1.00); GLUCOSE 115 mg/dl (70-220); LIPASE 18 U/L (23-300); POTASSIUM 3.4 mmol/L (3.5-5.1); SODIUM 136 mmol/L (135-144); TOTAL PROTEIN 5.9 g/dl (6.1-8.1)
[2017-09-26 17:58] LABS: TROPONIN-I < 0.012 ng/ml (0.00-0.12)
[2017-09-26 18:20] LABS: THYROID STIMULATING HORMONE 0.288 MIU/L (0.465-4.680)
[2017-09-26] MEDS ORDERED: ONDANSETRON 4 MG INJ IV (19:30)
[2017-09-26] MEDS ORDERED: ACETAMINOPHEN 325 MG TAB PO (19:30)
[2017-09-26 19:36] LABS: B-TYPE NATRIURETIC PEPTIDE 2470 PG/ML (0-450)
[2017-09-26 20:01] LABS: ADD UMIC YES; UR ASCORBIC ACID NEGATIVE (NEGATIVE); UR BILIRUBIN (Dip) NEGATIVE (NEGATIVE); UR BLOOD (Dip) NEGATIVE (NEGATIVE); UR CLARITY CLEAR (CLEAR); UR COLOR YELLOW (YELLOW); UR GLUCOSE (Dip) NEGATIVE (NEGATIVE); UR KETONES (Dip) NEGATIVE (NEGATIVE); UR LEUKOCYTE ESTERASE (Dip) NEGATIVE Leu/ul (NEGATIVE); UR NITRITE (Dip) NEGATIVE (NEGATIVE); UR RBC 5 /HPF (0-5); UR SPECIFIC GRAVITY (Dip) 1.026 (1.003-1.030); UR TOTAL PROTEIN (Dip) 2+ mg/dl (NEGATIVE); UR UROBILINOGEN (Dip) 1+ mg/dL (NEGATIVE); UR WBC 2 /HPF (0-5)
[2017-09-26] MEDS ORDERED: MECLIZINE 25 MG TAB PO (21:30)
[2017-09-26] MEDS ORDERED: GLUCOSE GEL 15 GRAM TUBE PO ×2 (21:30)
[2017-09-26] MEDS ORDERED: ONDANSETRON 4 MG TAB PO (21:30)
[2017-09-26] MEDS ORDERED: GLUCOSE GEL 15 GRAM TUBE BUCCAL (21:30)
[2017-09-26] MEDS ORDERED: GLUCAGON 1 MG INJ IM (21:30)
[2017-09-26] MEDS ORDERED: DEXTROSE 50% 50 ML SYRINGE IV ×2 (21:30)
[2017-09-26] MEDS ORDERED: LEVALBUTEROL (NEB) 0.63 MG/3 ML AMP INH (21:30)
[2017-09-26] MEDS: 1/2 NS + KCL 20 MEQ 1,000 ML IV (22:37)
[2017-09-26 22:49] LABS: TRIIODOTHYRONINE 0.62 ng/ml (0.97-1.69)
[2017-09-26] MEDS: CEFTRIAXONE 1 GM/50 ML (PMX) 50 ML IVPB (23:12)
[2017-09-26] MEDS: HYDROCORTISONE 2.5% 30 GM RECT CR PR (23:19)
[2017-09-26] MEDS: POTASSIUM CHLORIDE 100 ML IVPB (23:49)
[2017-09-26] MEDS: ACCU-CHEK XX (23:50)
[2017-09-27] MEDS: hydrALAzine 20 MG INJ IV ×2 (03:21→08:21)
[2017-09-27 05:37] LABS: LACTIC ACID 0.8 mmol/L (0.5-2.0)
[2017-09-27 05:47] LABS: CHOL/HDL RATIO 3.9 RATIO; CHOLESTEROL 125 mg/dl (100-200); HDL CHOLESTEROL 32 mg/dl (33-92); LDL CHOLESTEROL,CALCULATED 75 mg/dl; TRIGLYCERIDES 89 mg/dl (0-149)
[2017-09-27 05:47] LABS: MAGNESIUM 1.6 mg/dl (1.7-2.5)
[2017-09-27 06:00] LABS: FREE T4 (FREE THYROXINE) 1.42 ng/dl (0.85-1.93)
[2017-09-27 06:15] LABS: THYROID STIMULATING HORMONE 0.387 MIU/L (0.465-4.680)
[2017-09-27 06:25] LABS: HEMOGLOBIN A1C 5.4 % (0-5.9)
[2017-09-27] MEDS: INSULIN ASPART [NOVOLOG] 3 ML PEN SC ×4 (08:15→20:56)
[2017-09-27] MEDS: SENNA TAB PO ×2 (08:23→21:03)
[2017-09-27] MEDS: POTASSIUM CHLORIDE (SR) 20 MEQ TAB PO ×2 (08:23→21:02)
[2017-09-27] MEDS: ASPIRIN (EC) 325 MG TAB PO (08:25)
[2017-09-27] MEDS: LISINOPRIL 20 MG TAB PO ×2 (08:25→21:01)
[2017-09-27] MEDS: POLYETHYLENE GLYCOL 17 GM PACKET PO (08:26)
[2017-09-27] MEDS: CHOLECALCIFEROL 1,000 UNIT TAB PO (08:26)
[2017-09-27] MEDS: HYDROCORTISONE 2.5% 30 GM RECT CR PR ×2 (08:27→21:04)
[2017-09-27] MEDS: PANTOPRAZOLE (EC) 40 MG TAB PO (08:32)
[2017-09-27] MEDS: metFORMIN 850 MG TAB PO (08:32)
[2017-09-27 14:44] LABS: B-TYPE NATRIURETIC PEPTIDE 1480 PG/ML (0-450)
[2017-09-27] MEDS: FUROSEMIDE 40 MG INJ IV (17:13)
[2017-09-27] MEDS: MAGNESIUM SULFATE 2 GM/50 ML 50 ML IVPB (17:15)
[2017-09-27] MEDS: 1/2 NS + KCL 20 MEQ 1,000 ML IV (17:15)
[2017-09-27 19:04] LABS: TROPONIN-I < 0.012 ng/ml (0.00-0.12)
[2017-09-27] MEDS: CEFTRIAXONE 1 GM/50 ML (PMX) 50 ML IVPB (20:57)
[2017-09-27] MEDS: PAROXETINE 10 MG TAB PO (21:00)
[2017-09-27] MEDS: ATORVASTATIN 10 MG TAB PO (21:01)
[2017-09-27] MEDS: ZOLPIDEM 5 MG TAB PO (21:28)
[2017-09-28] MEDS: ACCU-CHEK XX (01:01)
[2017-09-28] MEDS: 1/2 NS + KCL 20 MEQ 1,000 ML IV ×2 (01:10→21:14)
[2017-09-28 01:26] LABS: TROPONIN-I < 0.012 ng/ml (0.00-0.12)
[2017-09-28 05:46] LABS: ADD MAN DIFF? NO
[2017-09-28 05:49] LABS: WHITE BLOOD COUNT 13.2 10^3/ul (4.8-10.8)
[2017-09-28 05:49] LABS: BASOPHILS % 0.3 % (0.0-2.0); EOSINOPHILS # 0.7 10^3/ul (0.0-0.5); EOSINOPHILS % 5.3 % (0.0-7.0); HEMATOCRIT 35.7 % (37.0-47.0); HEMOGLOBIN 11.7 g/dl (12.0-16.0); LYMPHOCYTES # 2.3 10^3/ul (0.8-2.9); LYMPHOCYTES % 17.7 % (15.0-51.0); MEAN CORPUSCULAR HEMOGLOBIN 25.5 pg (29.0-33.0); MEAN CORPUSCULAR HGB CONC 32.8 g/dl (32.0-37.0); MEAN CORPUSCULAR VOLUME 77.9 fl (82.0-101.0); MEAN PLATELET VOLUME 9.7 fl (7.4-10.4); MONOCYTE # 1.1 10^3/ul (0.3-0.9); MONOCYTES % 8.1 % (0.0-11.0); NEUTROPHILS % 67.8 % (39.0-77.0); PLATELET COUNT 295 10^3/UL (140-415); RED BLOOD COUNT 4.58 10^6/ul (4.20-5.40); RED CELL DISTRIBUTION WIDTH 17.8 % (11.5-14.5)
[2017-09-28] MEDS: FUROSEMIDE 40 MG INJ IV ×2 (05:53→17:53)
[2017-09-28 06:27] LABS: ANION GAP 12 (8-16); BLOOD UREA NITROGEN 17 mg/dl (7-20); CALCIUM 8.8 mg/dl (8.4-10.2); CARBON DIOXIDE 31 mmol/L (21-31); CHLORIDE 99 mmol/L (97-110); CREATININE 0.69 mg/dl (0.44-1.00); GLUCOSE 113 mg/dl (70-220); POTASSIUM 3.5 mmol/L (3.5-5.1); SODIUM 138 mmol/L (135-144)
[2017-09-28 06:39] LABS: TROPONIN-I < 0.012 ng/ml (0.00-0.12)
[2017-09-28] MEDS: INSULIN ASPART [NOVOLOG] 3 ML PEN SC ×4 (07:59→21:00)
[2017-09-28] MEDS: POLYETHYLENE GLYCOL 17 GM PACKET PO (08:08)
[2017-09-28] MEDS: SENNA TAB PO ×2 (08:09→21:10)
[2017-09-28] MEDS: POTASSIUM CHLORIDE (SR) 20 MEQ TAB PO ×2 (08:09→21:13)
[2017-09-28] MEDS: metFORMIN 850 MG TAB PO (08:09)
[2017-09-28] MEDS: CHOLECALCIFEROL 1,000 UNIT TAB PO (08:10)
[2017-09-28] MEDS: LISINOPRIL 20 MG TAB PO ×2 (08:10→21:12)
[2017-09-28] MEDS: PANTOPRAZOLE (EC) 40 MG TAB PO (08:10)
[2017-09-28] MEDS: ASPIRIN (EC) 325 MG TAB PO (08:10)
[2017-09-28] MEDS: ACETAMINOPHEN 325 MG TAB PO ×2 (08:11→13:49)
[2017-09-28] MEDS: HYDROCORTISONE 2.5% 30 GM RECT CR PR ×2 (08:11→21:14)
[2017-09-28 14:36] LABS: TROPONIN-I < 0.012 ng/ml (0.00-0.12)
[2017-09-28 19:22] LABS: TROPONIN-I < 0.012 ng/ml (0.00-0.12)
[2017-09-28] MEDS: CEFTRIAXONE 1 GM/50 ML (PMX) 50 ML IVPB (21:08)
[2017-09-28] MEDS: ATORVASTATIN 10 MG TAB PO (21:10)
[2017-09-28] MEDS: PAROXETINE 10 MG TAB PO (21:10)
[2017-09-28] MEDS: ZOLPIDEM 5 MG TAB PO (21:13)
[2017-09-29 01:29] LABS: TROPONIN-I < 0.012 ng/ml (0.00-0.12)
[2017-09-29] MEDS: ACCU-CHEK XX (01:29)
[2017-09-29] MEDS: FUROSEMIDE 40 MG INJ IV ×2 (06:00→17:57)
[2017-09-29] MEDS: INSULIN ASPART [NOVOLOG] 3 ML PEN SC ×4 (08:15→20:39)
[2017-09-29] MEDS: LISINOPRIL 20 MG TAB PO ×2 (08:57→20:38)
[2017-09-29] MEDS: PANTOPRAZOLE (EC) 40 MG TAB PO (08:58)
[2017-09-29] MEDS: metFORMIN 850 MG TAB PO (08:58)
[2017-09-29] MEDS: POTASSIUM CHLORIDE (SR) 20 MEQ TAB PO ×2 (08:58→20:38)
[2017-09-29] MEDS: CHOLECALCIFEROL 1,000 UNIT TAB PO (08:58)
[2017-09-29] MEDS: SENNA TAB PO ×3 (08:59→20:37)
[2017-09-29] MEDS: ASPIRIN (EC) 325 MG TAB PO (09:04)
[2017-09-29] MEDS: HYDROCORTISONE 2.5% 30 GM RECT CR PR ×2 (09:10→20:39)
[2017-09-29] MEDS: 1/2 NS + KCL 20 MEQ 1,000 ML IV (09:30)
[2017-09-29] MEDS: ALPRAZOLAM 0.25 MG TAB PO ×2 (13:20→22:17)
[2017-09-29] MEDS: POLYETHYLENE GLYCOL 17 GM PACKET PO (13:21)
[2017-09-29 14:32] LABS: PROLACTIN 17.1 ng/mL
[2017-09-29] MEDS: FLUCONAZOLE 100 MG TAB PO (14:33)
[2017-09-29] MEDS: ATORVASTATIN 10 MG TAB PO (20:38)
[2017-09-29] MEDS: PAROXETINE 10 MG TAB PO (20:38)
[2017-09-29] MEDS: NIFEdipine (XL) 30 MG TAB PO (20:41)
[2017-09-30] MEDS: ACCU-CHEK XX (02:00)
[2017-09-30] MEDS: 1/2 NS + KCL 20 MEQ 1,000 ML IV ×2 (03:34→05:30)
[2017-09-30 05:49] LABS: ADD MAN DIFF? NO
[2017-09-30 05:59] LABS: WHITE BLOOD COUNT 17.5 10^3/ul (4.8-10.8)
[2017-09-30 05:59] LABS: ABNORMAL IP MESSAGE 1; BASOPHIL # 0.2 10^3/ul (0.0-0.1); BASOPHILS % 0.9 % (0.0-2.0); EOSINOPHILS % 5.4 % (0.0-7.0); HEMATOCRIT 41.2 % (37.0-47.0); HEMOGLOBIN 13.2 g/dl (12.0-16.0); LYMPHOCYTES # 6.3 10^3/ul (0.8-2.9); LYMPHOCYTES % 35.7 % (15.0-51.0); MEAN CORPUSCULAR VOLUME 78.2 fl (82.0-101.0); MEAN PLATELET VOLUME 9.9 fl (7.4-10.4); MONOCYTE # 1.5 10^3/ul (0.3-0.9); MONOCYTES % 8.4 % (0.0-11.0); NEUTROPHIL # 8.5 10^3/ul (1.6-7.5); NEUTROPHILS % 48.6 % (39.0-77.0); PLATELET COUNT 470 10^3/UL (140-415); RED BLOOD COUNT 5.27 10^6/ul (4.20-5.40); RED CELL DISTRIBUTION WIDTH 17.7 % (11.5-14.5)
[2017-09-30 06:13] LABS: ANION GAP 14 (8-16); BLOOD UREA NITROGEN 22 mg/dl (7-20); CALCIUM 9.8 mg/dl (8.4-10.2); CARBON DIOXIDE 29 mmol/L (21-31); CHLORIDE 104 mmol/L (97-110); CREATININE 0.82 mg/dl (0.44-1.00); GLUCOSE 116 mg/dl (70-220); POTASSIUM 4.2 mmol/L (3.5-5.1); SODIUM 143 mmol/L (135-144)
[2017-09-30] MEDS: FUROSEMIDE 40 MG INJ IV (06:18)
[2017-09-30 06:32] LABS: POSITIVE DIFF @See below
[2017-09-30] MEDS: PANTOPRAZOLE (EC) 40 MG TAB PO (08:00)
[2017-09-30] MEDS: INSULIN ASPART [NOVOLOG] 3 ML PEN SC ×4 (08:06→20:39)
[2017-09-30] MEDS: POTASSIUM CHLORIDE (SR) 20 MEQ TAB PO ×2 (08:52→20:32)
[2017-09-30] MEDS: ASPIRIN (EC) 325 MG TAB PO (08:52)
[2017-09-30] MEDS: FLUCONAZOLE 100 MG TAB PO (08:53)
[2017-09-30] MEDS: CHOLECALCIFEROL 1,000 UNIT TAB PO (08:53)
[2017-09-30] MEDS: metFORMIN 850 MG TAB PO (08:56)
[2017-09-30] MEDS: POLYETHYLENE GLYCOL 17 GM PACKET PO (08:59)
[2017-09-30] MEDS: NIFEdipine (XL) 30 MG TAB PO (09:00)
[2017-09-30] MEDS: LISINOPRIL 20 MG TAB PO ×2 (09:00→20:33)
[2017-09-30] MEDS: SENNA TAB PO ×2 (09:00→20:31)
[2017-09-30] MEDS: HYDROCORTISONE 2.5% 30 GM RECT CR PR ×2 (09:09→20:40)
[2017-09-30] MEDS: FUROSEMIDE 20 MG INJ IV (17:58)
[2017-09-30] MEDS: PAROXETINE 10 MG TAB PO (20:32)
[2017-09-30] MEDS: ACETAMINOPHEN 325 MG TAB PO (20:32)
[2017-09-30] MEDS: ATORVASTATIN 10 MG TAB PO (20:32)
[2017-09-30] MEDS: ALPRAZOLAM 0.25 MG TAB PO (22:08)
[2017-09-30] MEDS: ONDANSETRON 4 MG TAB PO (22:08)
[2017-10-01] MEDS: ACCU-CHEK XX (01:07)
[2017-10-01] MEDS: FUROSEMIDE 20 MG INJ IV ×2 (05:15→18:00)
[2017-10-01 06:03] LABS: ADD MAN DIFF? NO
[2017-10-01 06:07] LABS: WHITE BLOOD COUNT 17.6 10^3/ul (4.8-10.8)
[2017-10-01 06:07] LABS: ABNORMAL IP MESSAGE 1; BASOPHIL # 0.1 10^3/ul (0.0-0.1); BASOPHILS % 0.7 % (0.0-2.0); EOSINOPHILS % 5.9 % (0.0-7.0); HEMATOCRIT 39.4 % (37.0-47.0); HEMOGLOBIN 12.5 g/dl (12.0-16.0); LYMPHOCYTES % 39.8 % (15.0-51.0); MEAN CORPUSCULAR HEMOGLOBIN 25.1 pg (29.0-33.0); MEAN CORPUSCULAR HGB CONC 31.7 g/dl (32.0-37.0); MEAN CORPUSCULAR VOLUME 79.1 fl (82.0-101.0); MEAN PLATELET VOLUME 10.1 fl (7.4-10.4); MONOCYTE # 1.2 10^3/ul (0.3-0.9); MONOCYTES % 6.8 % (0.0-11.0); NEUTROPHILS % 45.4 % (39.0-77.0); PLATELET COUNT 436 10^3/UL (140-415); RED BLOOD COUNT 4.98 10^6/ul (4.20-5.40); RED CELL DISTRIBUTION WIDTH 17.7 % (11.5-14.5)
[2017-10-01 06:13] LABS: POSITIVE DIFF @See below
[2017-10-01 06:26] LABS: ANION GAP 15 (8-16); BLOOD UREA NITROGEN 23 mg/dl (7-20); CALCIUM 9.6 mg/dl (8.4-10.2); CARBON DIOXIDE 30 mmol/L (21-31); CHLORIDE 102 mmol/L (97-110); CREATININE 0.81 mg/dl (0.44-1.00); GLUCOSE 105 mg/dl (70-220); SODIUM 143 mmol/L (135-144)
[2017-10-01] MEDS: SENNA TAB PO ×2 (08:12→20:08)
[2017-10-01] MEDS: POLYETHYLENE GLYCOL 17 GM PACKET PO (08:12)
[2017-10-01] MEDS: POTASSIUM CHLORIDE (SR) 20 MEQ TAB PO ×2 (08:13→21:31)
[2017-10-01] MEDS: LISINOPRIL 20 MG TAB PO ×2 (08:14→20:08)
[2017-10-01] MEDS: CHOLECALCIFEROL 1,000 UNIT TAB PO (08:14)
[2017-10-01] MEDS: PANTOPRAZOLE (EC) 40 MG TAB PO (08:15)
[2017-10-01] MEDS: FLUCONAZOLE 100 MG TAB PO (08:15)
[2017-10-01] MEDS: ASPIRIN (EC) 325 MG TAB PO (08:15)
[2017-10-01] MEDS: INSULIN ASPART [NOVOLOG] 3 ML PEN SC ×4 (08:15→20:08)
[2017-10-01] MEDS: metFORMIN 850 MG TAB PO (08:27)
[2017-10-01] MEDS: NIFEdipine (XL) 30 MG TAB PO (09:51)
[2017-10-01] MEDS: HYDROCORTISONE 2.5% 30 GM RECT CR PR ×2 (09:52→21:31)
[2017-10-01] MEDS: ONDANSETRON 4 MG TAB PO ×2 (13:35→20:10)
[2017-10-01] MEDS: ACETAMINOPHEN 325 MG TAB PO (16:50)
[2017-10-01 19:02] LABS: ALANINE AMINOTRANSFERASE 19 IU/L (13-69); ALBUMIN 3.3 g/dl (3.3-4.9); ALKALINE PHOSPHATASE 66 IU/L (42-121); ASPARTATE AMINO TRANSFERASE < 8 IU/L (15-46); BILIRUBIN,INDIRECT 0.2 mg/dl (0-1.1); BILIRUBIN,TOTAL 0.2 mg/dl (0.2-1.3); TOTAL PROTEIN 6.3 g/dl (6.1-8.1)
[2017-10-01 19:16] LABS: LIPASE 65 U/L (23-300)
[2017-10-01] MEDS: AL HYDROX/MG HYDROX/SIMETH 30 ML CUP PO (20:10)
[2017-10-01] MEDS: ATORVASTATIN 10 MG TAB PO (21:31)
[2017-10-01] MEDS: PAROXETINE 10 MG TAB PO (21:31)
[2017-10-01] MEDS: ALPRAZOLAM 0.25 MG TAB PO (21:32)
[2017-10-02] MEDS: ACCU-CHEK XX (01:20)
[2017-10-02] MEDS: FUROSEMIDE 20 MG INJ IV ×2 (05:37→18:00)
[2017-10-02 05:39] LABS: ADD MAN DIFF? NO
[2017-10-02 05:43] LABS: WHITE BLOOD COUNT 20.2 10^3/ul (4.8-10.8)
[2017-10-02 05:43] LABS: ABNORMAL IP MESSAGE 1; BASOPHIL # 0.2 10^3/ul (0.0-0.1); BASOPHILS % 0.9 % (0.0-2.0); HEMATOCRIT 38.4 % (37.0-47.0); HEMOGLOBIN 12.2 g/dl (12.0-16.0); LYMPHOCYTES # 6.9 10^3/ul (0.8-2.9); LYMPHOCYTES % 34.1 % (15.0-51.0); MEAN CORPUSCULAR HEMOGLOBIN 25.1 pg (29.0-33.0); MEAN CORPUSCULAR HGB CONC 31.8 g/dl (32.0-37.0); MEAN PLATELET VOLUME 9.7 fl (7.4-10.4); MONOCYTE # 1.3 10^3/ul (0.3-0.9); MONOCYTES % 6.5 % (0.0-11.0); NEUTROPHIL # 10.5 10^3/ul (1.6-7.5); NEUTROPHILS % 51.9 % (39.0-77.0); PLATELET COUNT 461 10^3/UL (140-415); RED BLOOD COUNT 4.86 10^6/ul (4.20-5.40); RED CELL DISTRIBUTION WIDTH 17.9 % (11.5-14.5)
[2017-10-02 05:53] LABS: POSITIVE DIFF @See below
[2017-10-02 06:02] LABS: ANION GAP 17 (8-16); BLOOD UREA NITROGEN 30 mg/dl (7-20); CALCIUM 9.3 mg/dl (8.4-10.2); CARBON DIOXIDE 27 mmol/L (21-31); CHLORIDE 102 mmol/L (97-110); CREATININE 1.49 mg/dl (0.44-1.00); GLUCOSE 103 mg/dl (70-220); POTASSIUM 4.9 mmol/L (3.5-5.1); SODIUM 141 mmol/L (135-144)
[2017-10-02] MEDS: INSULIN ASPART [NOVOLOG] 3 ML PEN SC ×4 (08:15→21:00)
[2017-10-02] MEDS: POTASSIUM CHLORIDE (SR) 20 MEQ TAB PO ×2 (08:50→22:11)
[2017-10-02] MEDS: SENNA TAB PO ×2 (08:50→21:00)
[2017-10-02] MEDS: FLUCONAZOLE 100 MG TAB PO (08:50)
[2017-10-02] MEDS: CHOLECALCIFEROL 1,000 UNIT TAB PO (08:50)
[2017-10-02] MEDS: POLYETHYLENE GLYCOL 17 GM PACKET PO (08:50)
[2017-10-02] MEDS: metFORMIN 850 MG TAB PO (08:51)
[2017-10-02] MEDS: ASPIRIN (EC) 325 MG TAB PO (08:51)
[2017-10-02] MEDS: PANTOPRAZOLE (EC) 40 MG TAB PO (08:51)
[2017-10-02] MEDS: LISINOPRIL 20 MG TAB PO ×2 (08:52→21:00)
[2017-10-02] MEDS: HYDROCORTISONE 2.5% 30 GM RECT CR PR ×2 (08:52→22:12)
[2017-10-02] MEDS: NIFEdipine (XL) 30 MG TAB PO (08:52)
[2017-10-02] MEDS: ATORVASTATIN 10 MG TAB PO (20:41)
[2017-10-02] MEDS: PAROXETINE 10 MG TAB PO (20:46)
[2017-10-02] MEDS: ALPRAZOLAM 0.25 MG TAB PO (20:49)
[2017-10-03] MEDS: ACCU-CHEK XX (02:00)
[2017-10-03 06:09] LABS: ABNORMAL IP MESSAGE 1; ADD MAN DIFF? NO; BASOPHIL # 0.2 10^3/ul (0.0-0.1); EOSINOPHILS # 0.8 10^3/ul (0.0-0.5); EOSINOPHILS % 4.2 % (0.0-7.0); HEMATOCRIT 38.7 % (37.0-47.0); HEMOGLOBIN 12.2 g/dl (12.0-16.0); LYMPHOCYTES # 6.3 10^3/ul (0.8-2.9); LYMPHOCYTES % 34.2 % (15.0-51.0); MEAN CORPUSCULAR HEMOGLOBIN 24.9 pg (29.0-33.0); MEAN CORPUSCULAR HGB CONC 31.5 g/dl (32.0-37.0); MEAN CORPUSCULAR VOLUME 79.1 fl (82.0-101.0); MEAN PLATELET VOLUME 10.7 fl (7.4-10.4); MONOCYTE # 1.2 10^3/ul (0.3-0.9); MONOCYTES % 6.7 % (0.0-11.0); NEUTROPHIL # 9.6 10^3/ul (1.6-7.5); NEUTROPHILS % 52.2 % (39.0-77.0); PLATELET COUNT 430 10^3/UL (140-415); RED BLOOD COUNT 4.89 10^6/ul (4.20-5.40); RED CELL DISTRIBUTION WIDTH 18.4 % (11.5-14.5)
[2017-10-03 06:09] LABS: WHITE BLOOD COUNT 18.5 10^3/ul (4.8-10.8)
[2017-10-03 06:36] LABS: LACTIC ACID 1.2 mmol/L (0.5-2.0)
[2017-10-03 06:38] LABS: LACTATE DEHYDROGENASE 341 IU/L (313-618)
[2017-10-03 06:40] LABS: POSITIVE DIFF @See below
[2017-10-03] MEDS: FUROSEMIDE 20 MG INJ IV ×2 (06:40→17:23)
[2017-10-03 06:57] LABS: ANION GAP 13 (8-16); BLOOD UREA NITROGEN 37 mg/dl (7-20); CALCIUM 9.4 mg/dl (8.4-10.2); CARBON DIOXIDE 29 mmol/L (21-31); CHLORIDE 102 mmol/L (97-110); CREATININE 1.66 mg/dl (0.44-1.00); GLUCOSE 102 mg/dl (70-220); POTASSIUM 5.4 mmol/L (3.5-5.1); SODIUM 139 mmol/L (135-144)
[2017-10-03] MEDS: INSULIN ASPART [NOVOLOG] 3 ML PEN SC ×4 (08:03→20:33)
[2017-10-03] MEDS: SENNA TAB PO ×2 (08:24→20:34)
[2017-10-03] MEDS: ASPIRIN (EC) 325 MG TAB PO (08:24)
[2017-10-03] MEDS: CHOLECALCIFEROL 1,000 UNIT TAB PO (08:24)
[2017-10-03] MEDS: FLUCONAZOLE 100 MG TAB PO (08:24)
[2017-10-03] MEDS: POLYETHYLENE GLYCOL 17 GM PACKET PO (08:24)
[2017-10-03] MEDS: PANTOPRAZOLE (EC) 40 MG TAB PO (08:24)
[2017-10-03] MEDS: POTASSIUM CHLORIDE (SR) 20 MEQ TAB PO (08:25)
[2017-10-03] MEDS: NIFEdipine (XL) 30 MG TAB PO (08:25)
[2017-10-03] MEDS: LISINOPRIL 20 MG TAB PO ×2 (08:25→20:34)
[2017-10-03] MEDS: HYDROCORTISONE 2.5% 30 GM RECT CR PR ×2 (08:26→20:35)
[2017-10-03 08:33] LABS: ERYTHROCYTE SEDIMENTATION RATE 45 mm/Hr (0-30)
[2017-10-03 10:32] LABS: ADD UMIC NO; UR ASCORBIC ACID NEGATIVE (NEGATIVE); UR BILIRUBIN (Dip) NEGATIVE (NEGATIVE); UR BLOOD (Dip) NEGATIVE (NEGATIVE); UR CLARITY CLEAR (CLEAR); UR COLOR YELLOW (YELLOW); UR GLUCOSE (Dip) NEGATIVE (NEGATIVE); UR KETONES (Dip) NEGATIVE (NEGATIVE); UR LEUKOCYTE ESTERASE (Dip) NEGATIVE Leu/ul (NEGATIVE); UR NITRITE (Dip) NEGATIVE (NEGATIVE); UR SPECIFIC GRAVITY (Dip) 1.016 (1.003-1.030); UR TOTAL PROTEIN (Dip) NEGATIVE (NEGATIVE); UR UROBILINOGEN (Dip) NEGATIVE (NEGATIVE)
[2017-10-03] MEDS: ONDANSETRON 4 MG TAB PO (13:05)
[2017-10-03] MEDS: ALPRAZOLAM 0.25 MG TAB PO ×2 (13:15→20:33)
[2017-10-03] MEDS: PAROXETINE 10 MG TAB PO (20:32)
[2017-10-03] MEDS: ATORVASTATIN 10 MG TAB PO (20:33)
[2017-10-04] MEDS: ACCU-CHEK XX (02:00)
[2017-10-04] MEDS: FUROSEMIDE 20 MG INJ IV ×2 (05:45→18:07)
[2017-10-04] MEDS: POLYETHYLENE GLYCOL 17 GM PACKET PO (08:08)
[2017-10-04] MEDS: PANTOPRAZOLE (EC) 40 MG TAB PO (08:09)
[2017-10-04] MEDS: SENNA TAB PO ×2 (08:10→20:24)
[2017-10-04] MEDS: FLUCONAZOLE 100 MG TAB PO (08:10)
[2017-10-04] MEDS: CHOLECALCIFEROL 1,000 UNIT TAB PO (08:10)
[2017-10-04] MEDS: ASPIRIN (EC) 325 MG TAB PO (08:10)
[2017-10-04] MEDS: LISINOPRIL 20 MG TAB PO ×2 (08:11→20:19)
[2017-10-04] MEDS: NIFEdipine (XL) 30 MG TAB PO (08:12)
[2017-10-04] MEDS: INSULIN ASPART [NOVOLOG] 3 ML PEN SC ×4 (08:15→20:12)
[2017-10-04] MEDS: HYDROCORTISONE 2.5% 30 GM RECT CR PR ×2 (08:33→20:13)
[2017-10-04] MEDS: ALPRAZOLAM 0.25 MG TAB PO (20:14)
[2017-10-04] MEDS: ATORVASTATIN 10 MG TAB PO (20:14)
[2017-10-04] MEDS: PAROXETINE 10 MG TAB PO (20:14)
[2017-10-04] MEDS: METOCLOPRAMIDE 5 MG TAB PO (20:15)
[2017-10-05] MEDS: ACCU-CHEK XX (02:00)
[2017-10-05] MEDS: FUROSEMIDE 20 MG INJ IV (05:13)
[2017-10-05 05:35] LABS: ADD MAN DIFF? NO; BASOPHIL # 0.2 10^3/ul (0.0-0.1); EOSINOPHILS # 0.6 10^3/ul (0.0-0.5); EOSINOPHILS % 3.6 % (0.0-7.0); HEMATOCRIT 39.4 % (37.0-47.0); HEMOGLOBIN 12.6 g/dl (12.0-16.0); LYMPHOCYTES # 4.5 10^3/ul (0.8-2.9); LYMPHOCYTES % 25.7 % (15.0-51.0); MEAN CORPUSCULAR HEMOGLOBIN 25.3 pg (29.0-33.0); MONOCYTE # 1.2 10^3/ul (0.3-0.9); MONOCYTES % 6.7 % (0.0-11.0); NEUTROPHIL # 10.7 10^3/ul (1.6-7.5); NEUTROPHILS % 60.8 % (39.0-77.0); PLATELET COUNT 471 10^3/UL (140-415); RED BLOOD COUNT 4.99 10^6/ul (4.20-5.40); RED CELL DISTRIBUTION WIDTH 17.9 % (11.5-14.5)
[2017-10-05 05:35] LABS: WHITE BLOOD COUNT 17.7 10^3/ul (4.8-10.8)
[2017-10-05 05:54] LABS: ANION GAP 16 (8-16); BLOOD UREA NITROGEN 47 mg/dl (7-20); CALCIUM 9.7 mg/dl (8.4-10.2); CARBON DIOXIDE 28 mmol/L (21-31); CHLORIDE 100 mmol/L (97-110); CREATININE 1.65 mg/dl (0.44-1.00); GLUCOSE 116 mg/dl (70-220); SODIUM 139 mmol/L (135-144)
[2017-10-05] MEDS: INSULIN ASPART [NOVOLOG] 3 ML PEN SC ×4 (08:15→21:00)
[2017-10-05] MEDS: POLYETHYLENE GLYCOL 17 GM PACKET PO (08:40)
[2017-10-05] MEDS: SENNA TAB PO ×2 (08:40→21:40)
[2017-10-05] MEDS: CHOLECALCIFEROL 1,000 UNIT TAB PO (08:40)
[2017-10-05] MEDS: FLUCONAZOLE 100 MG TAB PO (08:41)
[2017-10-05] MEDS: LISINOPRIL 20 MG TAB PO ×2 (08:42→21:00)
[2017-10-05] MEDS: METOCLOPRAMIDE 5 MG TAB PO ×3 (08:43→21:39)
[2017-10-05] MEDS: HYDROCORTISONE 2.5% 30 GM RECT CR PR ×2 (08:43→21:43)
[2017-10-05] MEDS: NIFEdipine (XL) 30 MG TAB PO (08:43)
[2017-10-05] MEDS: PANTOPRAZOLE (EC) 40 MG TAB PO (08:47)
[2017-10-05] MEDS: ASPIRIN (EC) 325 MG TAB PO (08:47)
[2017-10-05] MEDS: SOD CHLORIDE 0.45% 1,000 ML IV (17:40)
[2017-10-05] MEDS: PAROXETINE 10 MG TAB PO (21:39)
[2017-10-05] MEDS: ATORVASTATIN 10 MG TAB PO (21:39)
[2017-10-05] MEDS: ALPRAZOLAM 0.25 MG TAB PO (21:40)
[2017-10-06] MEDS: ACCU-CHEK XX (02:00)
[2017-10-06 06:21] LABS: ADD MAN DIFF? NO
[2017-10-06 06:41] LABS: ABNORMAL IP MESSAGE 1; BASOPHIL # 0.2 10^3/ul (0.0-0.1); EOSINOPHILS # 0.6 10^3/ul (0.0-0.5); EOSINOPHILS % 3.9 % (0.0-7.0); HEMATOCRIT 35.2 % (37.0-47.0); HEMOGLOBIN 11.3 g/dl (12.0-16.0); LYMPHOCYTES # 5.5 10^3/ul (0.8-2.9); MEAN CORPUSCULAR HEMOGLOBIN 25.5 pg (29.0-33.0); MEAN CORPUSCULAR HGB CONC 32.1 g/dl (32.0-37.0); MEAN CORPUSCULAR VOLUME 79.5 fl (82.0-101.0); MEAN PLATELET VOLUME 10.2 fl (7.4-10.4); MONOCYTE # 1.2 10^3/ul (0.3-0.9); MONOCYTES % 8.3 % (0.0-11.0); NEUTROPHIL # 7.1 10^3/ul (1.6-7.5); NEUTROPHILS % 48.2 % (39.0-77.0); PLATELET COUNT 390 10^3/UL (140-415); RED BLOOD COUNT 4.43 10^6/ul (4.20-5.40); RED CELL DISTRIBUTION WIDTH 17.9 % (11.5-14.5)
[2017-10-06 06:41] LABS: WHITE BLOOD COUNT 14.7 10^3/ul (4.8-10.8)
[2017-10-06 06:44] LABS: POSITIVE DIFF @See below
[2017-10-06 07:12] LABS: ANION GAP 11 (8-16); BLOOD UREA NITROGEN 40 mg/dl (7-20); CALCIUM 9.5 mg/dl (8.4-10.2); CARBON DIOXIDE 31 mmol/L (21-31); CHLORIDE 101 mmol/L (97-110); GLUCOSE 99 mg/dl (70-220); SODIUM 139 mmol/L (135-144)
[2017-10-06] MEDS: INSULIN ASPART [NOVOLOG] 3 ML PEN SC ×4 (08:15→21:00)
[2017-10-06] MEDS: PANTOPRAZOLE (EC) 40 MG TAB PO (08:16)
[2017-10-06] MEDS: FLUCONAZOLE 100 MG TAB PO (08:16)
[2017-10-06] MEDS: SENNA TAB PO ×2 (08:17→20:45)
[2017-10-06] MEDS: POLYETHYLENE GLYCOL 17 GM PACKET PO (08:17)
[2017-10-06] MEDS: CHOLECALCIFEROL 1,000 UNIT TAB PO (08:17)
[2017-10-06] MEDS: LISINOPRIL 20 MG TAB PO ×2 (08:17→20:46)
[2017-10-06] MEDS: METOCLOPRAMIDE 5 MG TAB PO ×3 (08:18→20:45)
[2017-10-06] MEDS: ASPIRIN (EC) 81 MG TAB PO (08:18)
[2017-10-06] MEDS: NIFEdipine (XL) 30 MG TAB PO (08:19)
[2017-10-06] MEDS: HYDROCORTISONE 2.5% 30 GM RECT CR PR ×2 (10:05→23:13)
[2017-10-06] MEDS: SOD CHLORIDE 0.45% 1,000 ML IV (10:05)
[2017-10-06] MEDS: PAROXETINE 10 MG TAB PO (20:45)
[2017-10-06] MEDS: ATORVASTATIN 10 MG TAB PO (20:46)
[2017-10-06] MEDS: ALPRAZOLAM 0.25 MG TAB PO (20:49)
[2017-10-07] MEDS: ACCU-CHEK XX (01:49)
[2017-10-07] MEDS: SOD CHLORIDE 0.45% 1,000 ML IV (04:27)
[2017-10-07 06:18] LABS: ADD MAN DIFF? NO
[2017-10-07 06:22] LABS: BASOPHIL # 0.1 10^3/ul (0.0-0.1); EOSINOPHILS # 0.5 10^3/ul (0.0-0.5); EOSINOPHILS % 3.7 % (0.0-7.0); HEMATOCRIT 34.3 % (37.0-47.0); HEMOGLOBIN 10.9 g/dl (12.0-16.0); LYMPHOCYTES # 4.3 10^3/ul (0.8-2.9); LYMPHOCYTES % 32.9 % (15.0-51.0); MEAN CORPUSCULAR HEMOGLOBIN 25.2 pg (29.0-33.0); MEAN CORPUSCULAR HGB CONC 31.8 g/dl (32.0-37.0); MEAN CORPUSCULAR VOLUME 79.2 fl (82.0-101.0); MONOCYTES % 7.7 % (0.0-11.0); NEUTROPHILS % 53.5 % (39.0-77.0); PLATELET COUNT 354 10^3/UL (140-415); RED BLOOD COUNT 4.33 10^6/ul (4.20-5.40); RED CELL DISTRIBUTION WIDTH 17.8 % (11.5-14.5)
[2017-10-07 06:22] LABS: WHITE BLOOD COUNT 13.1 10^3/ul (4.8-10.8)
[2017-10-07 07:22] LABS: ANION GAP 12 (8-16); BLOOD UREA NITROGEN 25 mg/dl (7-20); CALCIUM 9.1 mg/dl (8.4-10.2); CARBON DIOXIDE 30 mmol/L (21-31); CHLORIDE 105 mmol/L (97-110); CREATININE 0.84 mg/dl (0.44-1.00); GLUCOSE 102 mg/dl (70-220); POTASSIUM 3.9 mmol/L (3.5-5.1); SODIUM 143 mmol/L (135-144)
[2017-10-07] MEDS: INSULIN ASPART [NOVOLOG] 3 ML PEN SC ×3 (08:10→17:13)
[2017-10-07] MEDS: PANTOPRAZOLE (EC) 40 MG TAB PO (09:05)
[2017-10-07] MEDS: CHOLECALCIFEROL 1,000 UNIT TAB PO (09:06)
[2017-10-07] MEDS: metFORMIN 850 MG TAB PO (09:06)
[2017-10-07] MEDS: FLUCONAZOLE 100 MG TAB PO (09:06)
[2017-10-07] MEDS: METOCLOPRAMIDE 5 MG TAB PO ×2 (09:06→13:43)
[2017-10-07] MEDS: SENNA TAB PO (09:06)
[2017-10-07] MEDS: ASPIRIN (EC) 81 MG TAB PO (09:07)
[2017-10-07] MEDS: POLYETHYLENE GLYCOL 17 GM PACKET PO (09:08)
[2017-10-07] MEDS: NIFEdipine (XL) 30 MG TAB PO (09:08)
[2017-10-07] MEDS: HYDROCORTISONE 2.5% 30 GM RECT CR PR (09:09)
[2017-10-07] MEDS: LISINOPRIL 20 MG TAB PO (09:09)
== END 2017-10-07 17:50 | DRG 292 ==
LOC: E/R 15:51 → MS2 19:20
DX: I11.0 Hypertensive heart disease with heart failure (principal); N17.9 Acute kidney failure, unspecified; I50.33 Acute on chronic diastolic (congestive) heart failure; I48.0 Paroxysmal atrial fibrillation; E83.42 Hypomagnesemia; E11.9 Type 2 diabetes mellitus without complications; E87.6 Hypokalemia; R44.1 Visual hallucinations; F32.9 Major depressive disorder, single episode, unspecified; F41.9 Anxiety disorder, unspecified; K21.9 Gastro-esophageal reflux disease without esophagitis; R53.1 Weakness; E78.5 Hyperlipidemia, unspecified; D57.1 Sickle-cell disease without crisis; B27.90 Infectious mononucleosis, unspecified without complication; J02.9 Acute pharyngitis, unspecified; Z96.652 Presence of left artificial knee joint; Z91.81 History of falling; Z79.01 Long term (current) use of anticoagulants; Z87.01 Personal history of pneumonia (recurrent)
CPT/HCPCS: 71045; 71250; 74018; 74176; 78806; 80048; 80053; 80061; 80076; 81001; 81003; 82962; 83036; 83605; 83615; 83690; 83735; 83880; 84145; 84146; 84439; 84443; 84480; 84484; 85025; 85651; 87040; 87081; 87086; 93005; 97110; 97116; 97162; 97530; 99285-25

== ENCOUNTER 2018-01-18 13:58 | Inpatient (IN) | payer MEDICARE, OTHER ==
[2018-01-18 15:15] LABS: ADD MAN DIFF? NO
[2018-01-18] MEDS: SOD CHLORIDE 0.9% 500 ML IV (15:16)
[2018-01-18 15:18] LABS: BASOPHIL # 0.1 10^3/ul (0.0-0.1); BASOPHILS % 0.5 % (0.0-2.0); EOSINOPHILS # 0.5 10^3/ul (0.0-0.5); EOSINOPHILS % 3.4 % (0.0-7.0); HEMATOCRIT 38.8 % (37.0-47.0); HEMOGLOBIN 12.3 g/dl (12.0-16.0); LYMPHOCYTES # 3.7 10^3/ul (0.8-2.9); LYMPHOCYTES % 27.2 % (15.0-51.0); MEAN CORPUSCULAR HEMOGLOBIN 24.8 pg (29.0-33.0); MEAN CORPUSCULAR HGB CONC 31.7 g/dl (32.0-37.0); MEAN CORPUSCULAR VOLUME 78.4 fl (82.0-101.0); MEAN PLATELET VOLUME 9.9 fl (7.4-10.4); MONOCYTE # 0.9 10^3/ul (0.3-0.9); MONOCYTES % 6.8 % (0.0-11.0); NEUTROPHIL # 8.2 10^3/ul (1.6-7.5); NEUTROPHILS % 61.2 % (39.0-77.0); PLATELET COUNT 371 10^3/UL (140-415); RED BLOOD COUNT 4.95 10^6/ul (4.20-5.40)
[2018-01-18 15:18] LABS: WHITE BLOOD COUNT 13.4 10^3/ul (4.8-10.8)
[2018-01-18] MEDS: IPRATROPIUM (NEB) 0.5 MG/2.5 ML AMP NEB (15:18)
[2018-01-18] MEDS: ALBUTEROL 0.083% (NEB) 2.5 MG/3 ML AMP NEB (15:19)
[2018-01-18 15:45] LABS: ANION GAP 13 (8-16); BLOOD UREA NITROGEN 26 mg/dl (7-20); CALCIUM 9.2 mg/dl (8.4-10.2); CARBON DIOXIDE 25 mmol/L (21-31); CHLORIDE 106 mmol/L (97-110); CREATININE 0.84 mg/dl (0.44-1.00); GLUCOSE 115 mg/dl (70-220); POTASSIUM 4.2 mmol/L (3.5-5.1); SODIUM 140 mmol/L (135-144)
[2018-01-18 15:57] LABS: TROPONIN-I < 0.012 ng/ml (0.000-0.120)
[2018-01-18] MEDS ORDERED: ACETAMINOPHEN 325 MG TAB PO (16:30)
[2018-01-18] MEDS ORDERED: ONDANSETRON 4 MG INJ IV ×2 (16:30→18:30)
[2018-01-18 16:36] LABS: ADD UMIC NO; UR ASCORBIC ACID NEGATIVE (NEGATIVE); UR BILIRUBIN (Dip) NEGATIVE (NEGATIVE); UR BLOOD (Dip) NEGATIVE (NEGATIVE); UR CLARITY SLIGHTLY CLOUDY (CLEAR); UR COLOR YELLOW (YELLOW); UR GLUCOSE (Dip) NEGATIVE (NEGATIVE); UR HYALINE CAST FEW /HPF (NONE SEEN); UR KETONES (Dip) NEGATIVE (NEGATIVE); UR LEUKOCYTE ESTERASE (Dip) NEGATIVE Leu/ul (NEGATIVE); UR MUCUS FEW /HPF (NONE SEEN); UR NITRITE (Dip) NEGATIVE (NEGATIVE); UR RBC 15 /HPF (0-5); UR SPECIFIC GRAVITY (Dip) 1.021 (1.003-1.030); UR TOTAL PROTEIN (Dip) NEGATIVE (NEGATIVE); UR UROBILINOGEN (Dip) 2+ mg/dL (NEGATIVE); UR WBC 5 /HPF (0-5)
[2018-01-18 16:37] LABS: B-TYPE NATRIURETIC PEPTIDE 255 PG/ML (0-450)
[2018-01-18] MEDS: SOD CHLORIDE 0.9% 1,000 ML IV (17:31)
[2018-01-18] MEDS: CEFEPIME 1GM/50 ML (PMX) 50 ML IVPB (18:23)
[2018-01-18] MEDS: METHYLPREDNISOLONE 40 MG INJ IV (18:23)
[2018-01-18] MEDS: SOD CHLORIDE 0.45% 1,000 ML IV (18:24)
[2018-01-18] MEDS ORDERED: NITROGLYCERIN (SL) 0.4 MG TAB SL (18:30)
[2018-01-18] MEDS ORDERED: GLUCOSE GEL 15 GRAM TUBE PO ×2 (18:30)
[2018-01-18] MEDS ORDERED: HYDROCODONE/APAP (5/325) TAB PO (18:30)
[2018-01-18] MEDS ORDERED: GLUCOSE GEL 15 GRAM TUBE BUCCAL (18:30)
[2018-01-18] MEDS ORDERED: GLUCAGON 1 MG INJ IM (18:30)
[2018-01-18] MEDS ORDERED: DEXTROSE 50% 50 ML SYRINGE IV ×2 (18:30)
[2018-01-18] MEDS ORDERED: NACL 0.9% 3 ML SYG IV (18:30)
[2018-01-18] MEDS: ALBUTEROL/IPRATROPIUM (NEB) 3 ML AMP HHN (19:53)
[2018-01-18] MEDS: FAMOTIDINE 20 MG TAB PO (20:37)
[2018-01-18] MEDS: LISINOPRIL 20 MG TAB PO (20:38)
[2018-01-18] MEDS: ATORVASTATIN 10 MG TAB PO (20:39)
[2018-01-18] MEDS: INSULIN ASPART [NOVOLOG] 3 ML PEN SC (20:45)
[2018-01-18] MEDS: ALPRAZOLAM 0.5 MG TAB PO (21:22)
[2018-01-18 22:37] LABS: CREATINE KINASE 66 IU/L (23-200)
[2018-01-18] MEDS: GUAIFENESIN/CODEINE 5ML CUP PO (22:39)
[2018-01-18 22:50] LABS: CK INDEX 0.4; CK-MB 0.26 ng/ml (0.0-2.4); TROPONIN-I < 0.012 ng/ml (0.000-0.120)
[2018-01-19] MEDS: ALBUTEROL/IPRATROPIUM (NEB) 3 ML AMP HHN ×4 (02:15→20:13)
[2018-01-19 03:00] LABS: ADD MAN DIFF? NO
[2018-01-19 03:01] LABS: WHITE BLOOD COUNT 8.4 10^3/ul (4.8-10.8)
[2018-01-19 03:01] LABS: BASOPHILS % 0.2 % (0.0-2.0); HEMATOCRIT 35.5 % (37.0-47.0); HEMOGLOBIN 11.3 g/dl (12.0-16.0); LYMPHOCYTES # 1.5 10^3/ul (0.8-2.9); LYMPHOCYTES % 18.1 % (15.0-51.0); MEAN CORPUSCULAR HEMOGLOBIN 24.6 pg (29.0-33.0); MEAN CORPUSCULAR HGB CONC 31.8 g/dl (32.0-37.0); MEAN CORPUSCULAR VOLUME 77.3 fl (82.0-101.0); MEAN PLATELET VOLUME 9.7 fl (7.4-10.4); MONOCYTE # 0.1 10^3/ul (0.3-0.9); MONOCYTES % 0.9 % (0.0-11.0); NEUTROPHIL # 6.7 10^3/ul (1.6-7.5); NEUTROPHILS % 80.1 % (39.0-77.0); PLATELET COUNT 290 10^3/UL (140-415); RED BLOOD COUNT 4.59 10^6/ul (4.20-5.40); RED CELL DISTRIBUTION WIDTH 15.8 % (11.5-14.5)
[2018-01-19 03:19] LABS: POSITIVE DIFF @See below
[2018-01-19 03:23] LABS: CREATINE KINASE 68 IU/L (23-200)
[2018-01-19 03:27] LABS: ALANINE AMINOTRANSFERASE 19 IU/L (13-69); ALBUMIN 3.4 g/dl (3.3-4.9); ALKALINE PHOSPHATASE 74 IU/L (42-121); ANION GAP 13 (8-16); ASPARTATE AMINO TRANSFERASE 17 IU/L (15-46); BILIRUBIN,INDIRECT 0.2 mg/dl (0-1.1); BILIRUBIN,TOTAL 0.2 mg/dl (0.2-1.3); BLOOD UREA NITROGEN 20 mg/dl (7-20); CALCIUM 9.1 mg/dl (8.4-10.2); CARBON DIOXIDE 25 mmol/L (21-31); CHLORIDE 106 mmol/L (97-110); CREATININE 0.54 mg/dl (0.44-1.00); GLUCOSE 154 mg/dl (70-220); POTASSIUM 3.7 mmol/L (3.5-5.1); SODIUM 140 mmol/L (135-144); TOTAL PROTEIN 6.8 g/dl (6.1-8.1)
[2018-01-19 03:35] LABS: CK INDEX 0.4; TROPONIN-I < 0.012 ng/ml (0.000-0.120)
[2018-01-19 03:56] LABS: HEMOGLOBIN A1C 5.9 % (0-5.9)
[2018-01-19 04:06] LABS: THYROID STIMULATING HORMONE 0.537 MIU/L (0.465-4.680)
[2018-01-19] MEDS: ASPIRIN (EC) 81 MG TAB PO (08:49)
[2018-01-19] MEDS: FAMOTIDINE 20 MG TAB PO (08:49)
[2018-01-19] MEDS: MEMANTINE 10 MG TAB PO (08:49)
[2018-01-19] MEDS: metFORMIN 850 MG TAB PO (08:49)
[2018-01-19] MEDS: METHYLPREDNISOLONE 40 MG INJ IV (08:49)
[2018-01-19] MEDS: LISINOPRIL 20 MG TAB PO ×2 (08:50→20:37)
[2018-01-19] MEDS: INSULIN ASPART [NOVOLOG] 3 ML PEN SC ×4 (08:59→20:37)
[2018-01-19] MEDS: ENOXAPARIN 30 MG/0.3 ML SYG SC (08:59)
[2018-01-19] MEDS: GUAIFENESIN/CODEINE 5ML CUP PO (10:42)
[2018-01-19] MEDS: hydrALAzine 20 MG INJ IV (12:09)
[2018-01-19 17:03] LABS: LACTIC ACID 3.8 mmol/L (0.5-2.0)
[2018-01-19] MEDS: CEFEPIME 1GM/50 ML (PMX) 50 ML IVPB (17:09)
[2018-01-19] MEDS: ATORVASTATIN 10 MG TAB PO (20:36)
[2018-01-19] MEDS: ALPRAZOLAM 0.5 MG TAB PO (20:43)
[2018-01-20] MEDS: ALBUTEROL/IPRATROPIUM (NEB) 3 ML AMP HHN ×4 (01:21→20:26)
[2018-01-20 06:21] LABS: ADD MAN DIFF? NO
[2018-01-20 06:43] LABS: WHITE BLOOD COUNT 14.1 10^3/ul (4.8-10.8)
[2018-01-20 06:43] LABS: BASOPHIL # 0.1 10^3/ul (0.0-0.1); BASOPHILS % 0.4 % (0.0-2.0); EOSINOPHILS % 0.1 % (0.0-7.0); HEMATOCRIT 34.7 % (37.0-47.0); HEMOGLOBIN 11.3 g/dl (12.0-16.0); LYMPHOCYTES # 3.6 10^3/ul (0.8-2.9); LYMPHOCYTES % 25.3 % (15.0-51.0); MEAN CORPUSCULAR HEMOGLOBIN 24.7 pg (29.0-33.0); MEAN CORPUSCULAR HGB CONC 32.6 g/dl (32.0-37.0); MEAN CORPUSCULAR VOLUME 75.8 fl (82.0-101.0); MEAN PLATELET VOLUME 10.3 fl (7.4-10.4); NEUTROPHIL # 9.3 10^3/ul (1.6-7.5); NEUTROPHILS % 66.1 % (39.0-77.0); PLATELET COUNT 344 10^3/UL (140-415); RED BLOOD COUNT 4.58 10^6/ul (4.20-5.40)
[2018-01-20 07:19] LABS: LACTIC ACID 1.8 mmol/L (0.5-2.0)
[2018-01-20 07:23] LABS: ANION GAP 13 (8-16); BLOOD UREA NITROGEN 17 mg/dl (7-20); CALCIUM 9.4 mg/dl (8.4-10.2); CARBON DIOXIDE 28 mmol/L (21-31); CHLORIDE 105 mmol/L (97-110); CREATININE 0.49 mg/dl (0.44-1.00); GLUCOSE 99 mg/dl (70-220); POTASSIUM 3.4 mmol/L (3.5-5.1); SODIUM 143 mmol/L (135-144)
[2018-01-20] MEDS: INSULIN ASPART [NOVOLOG] 3 ML PEN SC ×4 (07:55→20:51)
[2018-01-20] MEDS: ASPIRIN (EC) 81 MG TAB PO (08:46)
[2018-01-20] MEDS: LISINOPRIL 20 MG TAB PO ×2 (08:46→20:51)
[2018-01-20] MEDS: METHYLPREDNISOLONE 40 MG INJ IV (08:46)
[2018-01-20] MEDS: metFORMIN 850 MG TAB PO (08:47)
[2018-01-20] MEDS: FAMOTIDINE 20 MG TAB PO (08:47)
[2018-01-20] MEDS: MEMANTINE 10 MG TAB PO (08:47)
[2018-01-20] MEDS: ENOXAPARIN 30 MG/0.3 ML SYG SC (09:03)
[2018-01-20] MEDS: POTASSIUM CHLORIDE 20 MEQ POWDER FOR ORAL SOLN PO (17:03)
[2018-01-20] MEDS: CEFEPIME 1GM/50 ML (PMX) 50 ML IVPB (17:03)
[2018-01-20] MEDS: ATORVASTATIN 10 MG TAB PO (20:50)
[2018-01-20] MEDS: APIXABAN 5 MG TABLET PO (20:50)
[2018-01-20] MEDS: ALPRAZOLAM 0.25 MG TAB PO (20:50)
[2018-01-20] MEDS: MUPIROCIN 2% 22 GM OINT TOP (20:51)
[2018-01-21] MEDS: GUAIFENESIN/CODEINE 5ML CUP PO (01:31)
[2018-01-21] MEDS: hydrALAzine 20 MG INJ IV (01:31)
[2018-01-21] MEDS: ALBUTEROL/IPRATROPIUM (NEB) 3 ML AMP HHN ×4 (02:15→19:50)
[2018-01-21 07:28] LABS: ADD MAN DIFF? NO
[2018-01-21 07:36] LABS: BASOPHIL # 0.1 10^3/ul (0.0-0.1); BASOPHILS % 0.4 % (0.0-2.0); EOSINOPHILS % 0.1 % (0.0-7.0); HEMATOCRIT 35.7 % (37.0-47.0); HEMOGLOBIN 11.4 g/dl (12.0-16.0); LYMPHOCYTES # 3.8 10^3/ul (0.8-2.9); LYMPHOCYTES % 27.7 % (15.0-51.0); MEAN CORPUSCULAR HEMOGLOBIN 24.4 pg (29.0-33.0); MEAN CORPUSCULAR HGB CONC 31.9 g/dl (32.0-37.0); MEAN CORPUSCULAR VOLUME 76.3 fl (82.0-101.0); MEAN PLATELET VOLUME 10.1 fl (7.4-10.4); MONOCYTE # 1.1 10^3/ul (0.3-0.9); MONOCYTES % 8.1 % (0.0-11.0); NEUTROPHIL # 8.6 10^3/ul (1.6-7.5); NEUTROPHILS % 62.2 % (39.0-77.0); PLATELET COUNT 338 10^3/UL (140-415); RED BLOOD COUNT 4.68 10^6/ul (4.20-5.40); RED CELL DISTRIBUTION WIDTH 16.1 % (11.5-14.5)
[2018-01-21 07:36] LABS: WHITE BLOOD COUNT 13.8 10^3/ul (4.8-10.8)
[2018-01-21 07:48] LABS: ANION GAP 10 (8-16); BLOOD UREA NITROGEN 21 mg/dl (7-20); CALCIUM 9.1 mg/dl (8.4-10.2); CARBON DIOXIDE 28 mmol/L (21-31); CHLORIDE 106 mmol/L (97-110); GLUCOSE 96 mg/dl (70-220); POTASSIUM 3.1 mmol/L (3.5-5.1); SODIUM 141 mmol/L (135-144)
[2018-01-21] MEDS: INSULIN ASPART [NOVOLOG] 3 ML PEN SC ×4 (07:55→20:39)
[2018-01-21] MEDS: MUPIROCIN 2% 22 GM OINT TOP ×2 (08:04→20:41)
[2018-01-21] MEDS: METHYLPREDNISOLONE 40 MG INJ IV (08:30)
[2018-01-21] MEDS: APIXABAN 5 MG TABLET PO ×2 (08:30→20:40)
[2018-01-21] MEDS: NIFEdipine (XL) 30 MG TAB PO (08:31)
[2018-01-21] MEDS: metFORMIN 850 MG TAB PO (08:31)
[2018-01-21] MEDS: ASPIRIN (EC) 81 MG TAB PO (08:31)
[2018-01-21] MEDS: LISINOPRIL 20 MG TAB PO ×2 (08:31→20:40)
[2018-01-21] MEDS: FAMOTIDINE 20 MG TAB PO (08:31)
[2018-01-21] MEDS: MEMANTINE 10 MG TAB PO (08:31)
[2018-01-21] MEDS: POTASSIUM CHLORIDE 20 MEQ POWDER FOR ORAL SOLN PO (11:28)
[2018-01-21 14:31] LABS: PROCALCITONIN <0.10 ng/mL (<0.10)
[2018-01-21 16:47] LABS: PROLACTIN 9.5 ng/mL
[2018-01-21] MEDS: CEFEPIME 1GM/50 ML (PMX) 50 ML IVPB (16:49)
[2018-01-21] MEDS: METOPROLOL 25 MG TAB PO (20:40)
[2018-01-21] MEDS: ATORVASTATIN 10 MG TAB PO (20:40)
[2018-01-22] MEDS: ALBUTEROL/IPRATROPIUM (NEB) 3 ML AMP HHN ×4 (02:14→19:41)
[2018-01-22 07:51] LABS: ADD MAN DIFF? NO
[2018-01-22 07:54] LABS: ABNORMAL IP MESSAGE 1; BASOPHIL # 0.1 10^3/ul (0.0-0.1); BASOPHILS % 0.6 % (0.0-2.0); EOSINOPHILS # 0.1 10^3/ul (0.0-0.5); EOSINOPHILS % 0.3 % (0.0-7.0); HEMATOCRIT 38.5 % (37.0-47.0); HEMOGLOBIN 12.2 g/dl (12.0-16.0); LYMPHOCYTES # 5.8 10^3/ul (0.8-2.9); MEAN CORPUSCULAR HEMOGLOBIN 24.4 pg (29.0-33.0); MEAN CORPUSCULAR HGB CONC 31.7 g/dl (32.0-37.0); MEAN CORPUSCULAR VOLUME 77.2 fl (82.0-101.0); MEAN PLATELET VOLUME 10.1 fl (7.4-10.4); MONOCYTE # 1.3 10^3/ul (0.3-0.9); MONOCYTES % 7.8 % (0.0-11.0); NEUTROPHIL # 9.3 10^3/ul (1.6-7.5); NEUTROPHILS % 54.5 % (39.0-77.0); PLATELET COUNT 420 10^3/UL (140-415); RED BLOOD COUNT 4.99 10^6/ul (4.20-5.40); RED CELL DISTRIBUTION WIDTH 16.4 % (11.5-14.5)
[2018-01-22] MEDS: INSULIN ASPART [NOVOLOG] 3 ML PEN SC ×4 (07:55→20:31)
[2018-01-22 08:00] LABS: POSITIVE DIFF @See below
[2018-01-22] MEDS: MEMANTINE 10 MG TAB PO (08:09)
[2018-01-22] MEDS: ASPIRIN (EC) 81 MG TAB PO (08:09)
[2018-01-22] MEDS: METHYLPREDNISOLONE 40 MG INJ IV (08:09)
[2018-01-22] MEDS: METOPROLOL 25 MG TAB PO ×2 (08:09→20:32)
[2018-01-22] MEDS: NIFEdipine (XL) 30 MG TAB PO (08:09)
[2018-01-22] MEDS: FAMOTIDINE 20 MG TAB PO (08:09)
[2018-01-22] MEDS: metFORMIN 850 MG TAB PO (08:09)
[2018-01-22] MEDS: APIXABAN 5 MG TABLET PO ×2 (08:09→20:31)
[2018-01-22] MEDS: LISINOPRIL 20 MG TAB PO ×2 (08:10→20:32)
[2018-01-22] MEDS: MUPIROCIN 2% 22 GM OINT TOP ×2 (08:10→20:31)
[2018-01-22 08:14] LABS: ANION GAP 14 (8-16); BLOOD UREA NITROGEN 17 mg/dl (7-20); CALCIUM 9.4 mg/dl (8.4-10.2); CARBON DIOXIDE 30 mmol/L (21-31); CHLORIDE 105 mmol/L (97-110); CREATININE 0.55 mg/dl (0.44-1.00); GLUCOSE 85 mg/dl (70-220); POTASSIUM 3.3 mmol/L (3.5-5.1); SODIUM 146 mmol/L (135-144)
[2018-01-22] MEDS: ACETAMINOPHEN 325 MG TAB PO (12:46)
[2018-01-22] MEDS: CEFEPIME 1GM/50 ML (PMX) 50 ML IVPB (16:42)
[2018-01-22] MEDS: POTASSIUM CHLORIDE (SR) 20 MEQ TAB PO (18:36)
[2018-01-22] MEDS: ATORVASTATIN 10 MG TAB PO (20:31)
[2018-01-22] MEDS: hydrALAzine 20 MG INJ IV (23:47)
[2018-01-23] MEDS: ALBUTEROL/IPRATROPIUM (NEB) 3 ML AMP HHN ×4 (01:24→19:33)
[2018-01-23] MEDS: ACETAMINOPHEN 325 MG TAB PO ×2 (01:41→20:19)
[2018-01-23 07:05] LABS: ABNORMAL IP MESSAGE 1; HEMATOCRIT 39.5 % (37.0-47.0); HEMOGLOBIN 12.6 g/dl (12.0-16.0); MEAN CORPUSCULAR HEMOGLOBIN 24.4 pg (29.0-33.0); MEAN CORPUSCULAR HGB CONC 31.9 g/dl (32.0-37.0); MEAN CORPUSCULAR VOLUME 76.4 fl (82.0-101.0); PLATELET COUNT 508 10^3/UL (140-415); RED BLOOD COUNT 5.17 10^6/ul (4.20-5.40); RED CELL DISTRIBUTION WIDTH 16.6 % (11.5-14.5)
[2018-01-23 07:05] LABS: WHITE BLOOD COUNT 21.8 10^3/ul (4.8-10.8)
[2018-01-23 07:18] LABS: ADD MAN DIFF? YES; POSITIVE DIFF @See below
[2018-01-23 07:35] LABS: ANION GAP 14 (8-16); BLOOD UREA NITROGEN 18 mg/dl (7-20); CALCIUM 9.1 mg/dl (8.4-10.2); CARBON DIOXIDE 26 mmol/L (21-31); CHLORIDE 109 mmol/L (97-110); CREATININE 0.54 mg/dl (0.44-1.00); GLUCOSE 86 mg/dl (70-220); POTASSIUM 3.1 mmol/L (3.5-5.1); SODIUM 146 mmol/L (135-144)
[2018-01-23] MEDS: INSULIN ASPART [NOVOLOG] 3 ML PEN SC ×4 (07:55→20:24)
[2018-01-23] MEDS: METHYLPREDNISOLONE 40 MG INJ IV (08:07)
[2018-01-23] MEDS: metFORMIN 850 MG TAB PO (08:08)
[2018-01-23] MEDS: NIFEdipine (XL) 30 MG TAB PO (08:08)
[2018-01-23] MEDS: MEMANTINE 10 MG TAB PO (08:08)
[2018-01-23] MEDS: LISINOPRIL 20 MG TAB PO ×2 (08:08→20:19)
[2018-01-23] MEDS: FAMOTIDINE 20 MG TAB PO (08:08)
[2018-01-23] MEDS: ASPIRIN (EC) 81 MG TAB PO (08:08)
[2018-01-23] MEDS: METOPROLOL 25 MG TAB PO ×2 (08:09→20:20)
[2018-01-23] MEDS: APIXABAN 5 MG TABLET PO (08:09)
[2018-01-23] MEDS: MUPIROCIN 2% 22 GM OINT TOP ×2 (08:09→20:24)
[2018-01-23] MEDS ORDERED: METHYLPREDNISOLONE 40 MG INJ IV (09:00)
[2018-01-23] MEDS: POTASSIUM CHLORIDE (SR) 20 MEQ TAB PO (09:27)
[2018-01-23 10:43] LABS: ANISOCYTOSIS 2+ (0-0); BAND NEUTROPHILS #M 0.2 10^3/ul (0.0-0.6); BAND NEUTROPHILS % (M) 1 % (0-4); GIANT THROMBO% (M) 1 % (0-0); LYMPHOCYTES #M 6.9 10^3/ul (0.8-2.9); LYMPHOCYTES % (M) 32 % (15-51); METAMYELOCYTES #M 0.2 10^3/ul (0.0-0.0); METAMYELOCYTES %M 1 % (0-0); MICROCYTOSIS 2+ (0-0); MONOCYTE #M 1.5 10^3/ul (0.3-0.9); MONOCYTES % (M) 7 % (0-11); MYELOCYTES #M 0.2 10^3/ul (0.0-0.0); MYELOCYTES % (M) 1 % (0-0); PLATELET ESTIMATE NORMAL; POIKILOCYTOSIS 1+ (0-0); POLYCHROMASIA 3+ (0-0); REACTIVE LYMPHOCYTES #M 0.4 10^3/ul (0.0-0.0); REACTIVE LYMPHOCYTES% (M) 2 % (0-0); SEG NEUT #M 12.3 10^3/ul (1.6-7.5); SEGMENTED NEUTROPHILS (M) % 56 % (39-77); SMUDGE%M 2 % (0-0)
[2018-01-23] MEDS: CEFEPIME 1GM/50 ML (PMX) 50 ML IVPB (18:08)
[2018-01-23] MEDS: ALPRAZOLAM 0.25 MG TAB PO (20:19)
[2018-01-23] MEDS: ATORVASTATIN 10 MG TAB PO (20:19)
[2018-01-24] MEDS: ALBUTEROL/IPRATROPIUM (NEB) 3 ML AMP HHN ×4 (01:41→19:44)
[2018-01-24 07:07] LABS: ABNORMAL IP MESSAGE 1; HEMATOCRIT 38.6 % (37.0-47.0); HEMOGLOBIN 12.3 g/dl (12.0-16.0); MEAN CORPUSCULAR HEMOGLOBIN 24.8 pg (29.0-33.0); MEAN CORPUSCULAR HGB CONC 31.9 g/dl (32.0-37.0); MEAN CORPUSCULAR VOLUME 77.8 fl (82.0-101.0); PLATELET COUNT 477 10^3/UL (140-415); RED BLOOD COUNT 4.96 10^6/ul (4.20-5.40); RED CELL DISTRIBUTION WIDTH 16.8 % (11.5-14.5)
[2018-01-24 07:15] LABS: ADD MAN DIFF? YES; POSITIVE DIFF @See below
[2018-01-24 07:35] LABS: ANION GAP 12 (8-16); BLOOD UREA NITROGEN 22 mg/dl (7-20); CALCIUM 9.2 mg/dl (8.4-10.2); CARBON DIOXIDE 28 mmol/L (21-31); CHLORIDE 108 mmol/L (97-110); GLUCOSE 84 mg/dl (70-220); MAGNESIUM 1.8 mg/dl (1.7-2.5); POTASSIUM 3.2 mmol/L (3.5-5.1); SODIUM 145 mmol/L (135-144)
[2018-01-24] MEDS: INSULIN ASPART [NOVOLOG] 3 ML PEN SC ×4 (07:54→20:28)
[2018-01-24] MEDS: FAMOTIDINE 20 MG TAB PO (08:34)
[2018-01-24] MEDS: metFORMIN 850 MG TAB PO (08:34)
[2018-01-24] MEDS: METOPROLOL 25 MG TAB PO ×2 (08:35→20:23)
[2018-01-24] MEDS: NIFEdipine (XL) 30 MG TAB PO (08:35)
[2018-01-24] MEDS: ASPIRIN (EC) 81 MG TAB PO (08:35)
[2018-01-24] MEDS: LISINOPRIL 20 MG TAB PO ×2 (08:35→20:23)
[2018-01-24] MEDS: MEMANTINE 10 MG TAB PO (08:35)
[2018-01-24] MEDS: MUPIROCIN 2% 22 GM OINT TOP ×2 (08:36→20:26)
[2018-01-24 10:00] LABS: ANISOCYTOSIS 3+ (0-0); BAND NEUTROPHILS #M 0.2 10^3/ul (0.0-0.6); BAND NEUTROPHILS % (M) 1 % (0-4); BASOPHIL #M 0.4 10^3/ul (0.0-0.0); BASOPHILS % (M) 2 % (0-2); EOSINOPHILS % (M) 2 % (0-7); GIANT THROMBO% (M) 2 % (0-0); LYMPHOCYTES #M 8.6 10^3/ul (0.8-2.9); LYMPHOCYTES % (M) 41 % (15-51); MICROCYTOSIS 2+ (0-0); MONOCYTE #M 1.2 10^3/ul (0.3-0.9); MONOCYTES % (M) 6 % (0-11); PLATELET ESTIMATE NORMAL; POIKILOCYTOSIS 3+ (0-0); POLYCHROMASIA 3+ (0-0); SEG NEUT #M 10.1 10^3/ul (1.6-7.5); SEGMENTED NEUTROPHILS (M) % 48 % (39-77); SMUDGE%M 31 % (0-0)
[2018-01-24] MEDS: POTASSIUM CHLORIDE (SR) 20 MEQ TAB PO (12:01)
[2018-01-24] MEDS: CLONIDINE 0.1 MG/24 HR PATCH TRANSDERM (12:21)
[2018-01-24] MEDS: CEFEPIME 1GM/50 ML (PMX) 50 ML IVPB (17:18)
[2018-01-24] MEDS: ATORVASTATIN 10 MG TAB PO (20:23)
[2018-01-25] MEDS: ALBUTEROL/IPRATROPIUM (NEB) 3 ML AMP HHN ×4 (01:41→20:39)
[2018-01-25 04:42] LABS: ADD MAN DIFF? NO
[2018-01-25 04:46] LABS: ABNORMAL IP MESSAGE 1; BASOPHIL # 0.2 10^3/ul (0.0-0.1); BASOPHILS % 0.7 % (0.0-2.0); EOSINOPHILS # 0.7 10^3/ul (0.0-0.5); EOSINOPHILS % 3.2 % (0.0-7.0); HEMATOCRIT 39.7 % (37.0-47.0); HEMOGLOBIN 12.5 g/dl (12.0-16.0); LYMPHOCYTES # 7.6 10^3/ul (0.8-2.9); LYMPHOCYTES % 35.6 % (15.0-51.0); MEAN CORPUSCULAR HEMOGLOBIN 24.7 pg (29.0-33.0); MEAN CORPUSCULAR HGB CONC 31.5 g/dl (32.0-37.0); MEAN CORPUSCULAR VOLUME 78.5 fl (82.0-101.0); MEAN PLATELET VOLUME 9.5 fl (7.4-10.4); MONOCYTE # 1.3 10^3/ul (0.3-0.9); NEUTROPHIL # 11.1 10^3/ul (1.6-7.5); PLATELET COUNT 474 10^3/UL (140-415); RED BLOOD COUNT 5.06 10^6/ul (4.20-5.40); RED CELL DISTRIBUTION WIDTH 16.8 % (11.5-14.5)
[2018-01-25 04:46] LABS: WHITE BLOOD COUNT 21.4 10^3/ul (4.8-10.8)
[2018-01-25 04:48] LABS: POSITIVE DIFF @See below
[2018-01-25 05:09] LABS: ANION GAP 12 (8-16); BLOOD UREA NITROGEN 20 mg/dl (7-20); CALCIUM 8.8 mg/dl (8.4-10.2); CARBON DIOXIDE 26 mmol/L (21-31); CHLORIDE 111 mmol/L (97-110); CREATININE 0.52 mg/dl (0.44-1.00); GLUCOSE 89 mg/dl (70-220); POTASSIUM 3.6 mmol/L (3.5-5.1); SODIUM 145 mmol/L (135-144)
[2018-01-25 07:41] LABS: ANISOCYTOSIS 2+ (0-0); BAND NEUTROPHILS % (M) 5 % (0-4); BASOPHIL #M 0.2 10^3/ul (0.0-0.0); BASOPHILS % (M) 1 % (0-2); EOSINOPHILS % (M) 2 % (0-7); LYMPHOCYTES #M 8.7 10^3/ul (0.8-2.9); LYMPHOCYTES % (M) 41 % (15-51); METAMYELOCYTES #M 0.2 10^3/ul (0.0-0.0); METAMYELOCYTES %M 1 % (0-0); MICROCYTOSIS 2+ (0-0); MONOCYTE #M 1.4 10^3/ul (0.3-0.9); MONOCYTES % (M) 7 % (0-11); PLATELET ESTIMATE INCREASED; POIKILOCYTOSIS 1+ (0-0); POLYCHROMASIA 3+ (0-0); SEG NEUT #M 9.4 10^3/ul (1.6-7.5); SEGMENTED NEUTROPHILS (M) % 43 % (39-77); SMUDGE%M 4 % (0-0)
[2018-01-25] MEDS: INSULIN ASPART [NOVOLOG] 3 ML PEN SC ×4 (08:00→21:00)
[2018-01-25] MEDS: METOPROLOL 25 MG TAB PO ×2 (08:49→20:23)
[2018-01-25] MEDS: MUPIROCIN 2% 22 GM OINT TOP ×2 (08:49→20:24)
[2018-01-25] MEDS: FAMOTIDINE 20 MG TAB PO (08:49)
[2018-01-25] MEDS: ASPIRIN (EC) 81 MG TAB PO (08:49)
[2018-01-25] MEDS: LISINOPRIL 20 MG TAB PO ×2 (08:50→20:22)
[2018-01-25] MEDS: MEMANTINE 10 MG TAB PO (08:50)
[2018-01-25] MEDS: NIFEdipine (XL) 30 MG TAB PO (08:50)
[2018-01-25] MEDS: metFORMIN 850 MG TAB PO (10:01)
[2018-01-25] MEDS: ATORVASTATIN 10 MG TAB PO (20:22)
[2018-01-25] MEDS: GUAIFENESIN/CODEINE 5ML CUP PO (21:21)
[2018-01-26] MEDS: ALBUTEROL/IPRATROPIUM (NEB) 3 ML AMP HHN ×4 (01:01→20:07)
[2018-01-26 05:26] LABS: ADD MAN DIFF? NO
[2018-01-26 05:29] LABS: WHITE BLOOD COUNT 21.4 10^3/ul (4.8-10.8)
[2018-01-26 05:29] LABS: ABNORMAL IP MESSAGE 1; BASOPHIL # 0.2 10^3/ul (0.0-0.1); BASOPHILS % 0.8 % (0.0-2.0); EOSINOPHILS # 0.6 10^3/ul (0.0-0.5); EOSINOPHILS % 2.9 % (0.0-7.0); HEMATOCRIT 39.2 % (37.0-47.0); HEMOGLOBIN 12.4 g/dl (12.0-16.0); LYMPHOCYTES # 6.6 10^3/ul (0.8-2.9); LYMPHOCYTES % 30.9 % (15.0-51.0); MEAN CORPUSCULAR HEMOGLOBIN 24.7 pg (29.0-33.0); MEAN CORPUSCULAR HGB CONC 31.6 g/dl (32.0-37.0); MEAN CORPUSCULAR VOLUME 78.1 fl (82.0-101.0); MEAN PLATELET VOLUME 10.3 fl (7.4-10.4); MONOCYTE # 1.5 10^3/ul (0.3-0.9); MONOCYTES % 6.9 % (0.0-11.0); NEUTROPHILS % 56.1 % (39.0-77.0); PLATELET COUNT 461 10^3/UL (140-415); RED BLOOD COUNT 5.02 10^6/ul (4.20-5.40); RED CELL DISTRIBUTION WIDTH 17.2 % (11.5-14.5)
[2018-01-26 05:40] LABS: POSITIVE DIFF @See below
[2018-01-26 06:24] LABS: ANION GAP 9 (8-16); BLOOD UREA NITROGEN 20 mg/dl (7-20); CARBON DIOXIDE 29 mmol/L (21-31); CHLORIDE 106 mmol/L (97-110); CREATININE 0.55 mg/dl (0.44-1.00); GLUCOSE 92 mg/dl (70-220); POTASSIUM 3.4 mmol/L (3.5-5.1); SODIUM 141 mmol/L (135-144)
[2018-01-26] MEDS: INSULIN ASPART [NOVOLOG] 3 ML PEN SC ×4 (08:00→20:30)
[2018-01-26] MEDS: MEMANTINE 10 MG TAB PO (09:05)
[2018-01-26] MEDS: LISINOPRIL 20 MG TAB PO ×2 (09:05→20:28)
[2018-01-26] MEDS: metFORMIN 850 MG TAB PO (09:05)
[2018-01-26] MEDS: NIFEdipine (XL) 30 MG TAB PO (09:05)
[2018-01-26] MEDS: FAMOTIDINE 20 MG TAB PO (09:05)
[2018-01-26] MEDS: ASPIRIN (EC) 81 MG TAB PO (09:05)
[2018-01-26] MEDS: MUPIROCIN 2% 22 GM OINT TOP ×2 (09:06→20:27)
[2018-01-26] MEDS: METOPROLOL 25 MG TAB PO ×2 (09:06→20:28)
[2018-01-26] MEDS: MAGNESIUM HYDROXIDE 30ML CUP PO (11:50)
[2018-01-26] MEDS: DOCUSATE SODIUM 100 MG CAP PO ×2 (11:50→20:27)
[2018-01-26] MEDS ORDERED: POLYETHYLENE GLYCOL 17 GM PACKET PO (12:00)
[2018-01-26] MEDS: ATORVASTATIN 10 MG TAB PO (20:27)
[2018-01-27] MEDS: ALBUTEROL/IPRATROPIUM (NEB) 3 ML AMP HHN ×4 (01:27→20:00)
[2018-01-27 07:05] LABS: ADD MAN DIFF? NO
[2018-01-27 07:10] LABS: ABNORMAL IP MESSAGE 1; BASOPHIL # 0.1 10^3/ul (0.0-0.1); BASOPHILS % 0.7 % (0.0-2.0); EOSINOPHILS # 0.6 10^3/ul (0.0-0.5); EOSINOPHILS % 3.3 % (0.0-7.0); HEMATOCRIT 37.6 % (37.0-47.0); LYMPHOCYTES % 33.1 % (15.0-51.0); MEAN CORPUSCULAR HEMOGLOBIN 24.9 pg (29.0-33.0); MEAN CORPUSCULAR HGB CONC 31.9 g/dl (32.0-37.0); MEAN CORPUSCULAR VOLUME 78.2 fl (82.0-101.0); MEAN PLATELET VOLUME 10.2 fl (7.4-10.4); MONOCYTE # 1.4 10^3/ul (0.3-0.9); MONOCYTES % 7.5 % (0.0-11.0); NEUTROPHIL # 9.6 10^3/ul (1.6-7.5); NEUTROPHILS % 53.5 % (39.0-77.0); PLATELET COUNT 403 10^3/UL (140-415); RED BLOOD COUNT 4.81 10^6/ul (4.20-5.40); RED CELL DISTRIBUTION WIDTH 17.2 % (11.5-14.5)
[2018-01-27 07:13] LABS: POSITIVE DIFF @See below
[2018-01-27 07:53] LABS: ANION GAP 10 (8-16); BLOOD UREA NITROGEN 18 mg/dl (7-20); CALCIUM 8.8 mg/dl (8.4-10.2); CARBON DIOXIDE 27 mmol/L (21-31); CHLORIDE 105 mmol/L (97-110); CREATININE 0.52 mg/dl (0.44-1.00); GLUCOSE 101 mg/dl (70-220); POTASSIUM 3.3 mmol/L (3.5-5.1); SODIUM 139 mmol/L (135-144)
[2018-01-27] MEDS: INSULIN ASPART [NOVOLOG] 3 ML PEN SC ×4 (08:00→20:42)
[2018-01-27] MEDS: metFORMIN 850 MG TAB PO (08:36)
[2018-01-27] MEDS: FAMOTIDINE 20 MG TAB PO (08:36)
[2018-01-27] MEDS: DOCUSATE SODIUM 100 MG CAP PO ×2 (08:36→20:39)
[2018-01-27] MEDS: ASPIRIN (EC) 81 MG TAB PO (08:36)
[2018-01-27] MEDS: MEMANTINE 10 MG TAB PO (08:36)
[2018-01-27] MEDS: MUPIROCIN 2% 22 GM OINT TOP ×2 (08:37→20:41)
[2018-01-27] MEDS: NIFEdipine (XL) 30 MG TAB PO (08:37)
[2018-01-27] MEDS: LISINOPRIL 20 MG TAB PO ×2 (08:37→20:40)
[2018-01-27] MEDS: MAGNESIUM HYDROXIDE 30ML CUP PO (08:37)
[2018-01-27] MEDS: METOPROLOL 25 MG TAB PO ×2 (08:37→20:41)
[2018-01-27] MEDS: POTASSIUM CHLORIDE (SR) 20 MEQ TAB PO (15:58)
[2018-01-27] MEDS: ACETAMINOPHEN 325 MG TAB PO (20:39)
[2018-01-27] MEDS: ATORVASTATIN 10 MG TAB PO (20:40)
[2018-01-28] MEDS: ALBUTEROL/IPRATROPIUM (NEB) 3 ML AMP HHN ×4 (01:26→20:00)
[2018-01-28 04:54] LABS: ADD MAN DIFF? NO
[2018-01-28 05:01] LABS: ABNORMAL IP MESSAGE 1; BASOPHIL # 0.1 10^3/ul (0.0-0.1); BASOPHILS % 0.8 % (0.0-2.0); EOSINOPHILS # 0.7 10^3/ul (0.0-0.5); EOSINOPHILS % 4.2 % (0.0-7.0); HEMATOCRIT 37.6 % (37.0-47.0); HEMOGLOBIN 11.9 g/dl (12.0-16.0); LYMPHOCYTES # 6.6 10^3/ul (0.8-2.9); LYMPHOCYTES % 41.3 % (15.0-51.0); MEAN CORPUSCULAR HEMOGLOBIN 25.1 pg (29.0-33.0); MEAN CORPUSCULAR HGB CONC 31.6 g/dl (32.0-37.0); MEAN CORPUSCULAR VOLUME 79.2 fl (82.0-101.0); MEAN PLATELET VOLUME 10.2 fl (7.4-10.4); MONOCYTE # 1.3 10^3/ul (0.3-0.9); MONOCYTES % 8.1 % (0.0-11.0); NEUTROPHIL # 7.1 10^3/ul (1.6-7.5); NEUTROPHILS % 44.2 % (39.0-77.0); PLATELET COUNT 380 10^3/UL (140-415); RED BLOOD COUNT 4.75 10^6/ul (4.20-5.40); RED CELL DISTRIBUTION WIDTH 17.4 % (11.5-14.5)
[2018-01-28 05:18] LABS: POSITIVE DIFF @See below
[2018-01-28 05:23] LABS: ANION GAP 9 (8-16); BLOOD UREA NITROGEN 19 mg/dl (7-20); CARBON DIOXIDE 30 mmol/L (21-31); CHLORIDE 107 mmol/L (97-110); CREATININE 0.58 mg/dl (0.44-1.00); GLUCOSE 100 mg/dl (70-220); POTASSIUM 3.8 mmol/L (3.5-5.1); SODIUM 142 mmol/L (135-144)
[2018-01-28] MEDS: INSULIN ASPART [NOVOLOG] 3 ML PEN SC ×4 (07:56→21:00)
[2018-01-28] MEDS: FAMOTIDINE 20 MG TAB PO (09:00)
[2018-01-28] MEDS: MEMANTINE 10 MG TAB PO (09:00)
[2018-01-28] MEDS: LISINOPRIL 20 MG TAB PO ×2 (09:00→20:12)
[2018-01-28] MEDS: DOCUSATE SODIUM 100 MG CAP PO ×2 (09:00→20:11)
[2018-01-28] MEDS: ASPIRIN (EC) 81 MG TAB PO (09:00)
[2018-01-28] MEDS: METOPROLOL 25 MG TAB PO ×2 (09:00→20:13)
[2018-01-28] MEDS: metFORMIN 850 MG TAB PO (09:00)
[2018-01-28] MEDS: NIFEdipine (XL) 30 MG TAB PO (09:00)
[2018-01-28] MEDS: MUPIROCIN 2% 22 GM OINT TOP ×2 (09:00→20:13)
[2018-01-28] MEDS: MAGNESIUM HYDROXIDE 30ML CUP PO (09:16)
[2018-01-28] MEDS: DEXTROSE 5%-0.45% NACL 1,000 ML IV (14:00)
[2018-01-28] MEDS ORDERED: BARIUM SULF 2% 450 ML BTL (BERRY SMOOTHIE) PO (15:00)
[2018-01-28] MEDS: IOHEXOL 14.3 MG(I)/ML (ADULT) BTL PO ×2 (16:30→16:55)
[2018-01-28] MEDS: ATORVASTATIN 10 MG TAB PO (20:12)
[2018-01-28] MEDS: BISACODYL (EC) 5 MG TAB PO (20:12)
[2018-01-28] MEDS: ACETAMINOPHEN 325 MG TAB PO (20:13)
[2018-01-29] MEDS: ALBUTEROL/IPRATROPIUM (NEB) 3 ML AMP HHN ×4 (01:25→19:39)
[2018-01-29] MEDS: DEXTROSE 5%-0.45% NACL 1,000 ML IV ×2 (05:56→21:54)
[2018-01-29 06:10] LABS: ADD MAN DIFF? NO
[2018-01-29 06:19] LABS: WHITE BLOOD COUNT 12.9 10^3/ul (4.8-10.8)
[2018-01-29 06:19] LABS: ABNORMAL IP MESSAGE 1; BASOPHIL # 0.1 10^3/ul (0.0-0.1); BASOPHILS % 0.9 % (0.0-2.0); EOSINOPHILS # 0.6 10^3/ul (0.0-0.5); EOSINOPHILS % 4.8 % (0.0-7.0); HEMATOCRIT 36.5 % (37.0-47.0); HEMOGLOBIN 11.3 g/dl (12.0-16.0); LYMPHOCYTES # 5.1 10^3/ul (0.8-2.9); LYMPHOCYTES % 39.2 % (15.0-51.0); MEAN CORPUSCULAR HEMOGLOBIN 24.7 pg (29.0-33.0); MEAN CORPUSCULAR VOLUME 79.7 fl (82.0-101.0); MEAN PLATELET VOLUME 10.6 fl (7.4-10.4); MONOCYTE # 1.1 10^3/ul (0.3-0.9); MONOCYTES % 8.8 % (0.0-11.0); NEUTROPHIL # 5.8 10^3/ul (1.6-7.5); NEUTROPHILS % 45.1 % (39.0-77.0); PLATELET COUNT 310 10^3/UL (140-415); RED BLOOD COUNT 4.58 10^6/ul (4.20-5.40); RED CELL DISTRIBUTION WIDTH 17.5 % (11.5-14.5)
[2018-01-29 06:43] LABS: POSITIVE DIFF @See below
[2018-01-29 07:08] LABS: ANION GAP 9 (8-16); BLOOD UREA NITROGEN 12 mg/dl (7-20); CALCIUM 8.6 mg/dl (8.4-10.2); CARBON DIOXIDE 28 mmol/L (21-31); CHLORIDE 109 mmol/L (97-110); CREATININE 0.52 mg/dl (0.44-1.00); GLUCOSE 98 mg/dl (70-220); POTASSIUM 3.7 mmol/L (3.5-5.1); SODIUM 142 mmol/L (135-144)
[2018-01-29] MEDS: INSULIN ASPART [NOVOLOG] 3 ML PEN SC ×4 (08:00→20:44)
[2018-01-29] MEDS: DOCUSATE SODIUM 100 MG CAP PO ×2 (08:47→20:43)
[2018-01-29] MEDS: metFORMIN 850 MG TAB PO (08:51)
[2018-01-29] MEDS: MEMANTINE 10 MG TAB PO (08:52)
[2018-01-29] MEDS: NIFEdipine (XL) 30 MG TAB PO (08:52)
[2018-01-29] MEDS: METOPROLOL 25 MG TAB PO ×2 (08:52→20:43)
[2018-01-29] MEDS: FAMOTIDINE 20 MG TAB PO (08:52)
[2018-01-29] MEDS: ASPIRIN (EC) 81 MG TAB PO (08:52)
[2018-01-29] MEDS: LISINOPRIL 20 MG TAB PO ×3 (08:53→21:55)
[2018-01-29] MEDS: MUPIROCIN 2% 22 GM OINT TOP ×2 (08:53→20:46)
[2018-01-29] MEDS: POLYETHYLENE GLYCOL 17 GM PACKET PO (14:14)
[2018-01-29] MEDS: BISACODYL (EC) 5 MG TAB PO (14:14)
[2018-01-29] MEDS: LUBIPROSTONE 24 MCG CAP PO ×2 (16:40→23:00)
[2018-01-29] MEDS: ACETAMINOPHEN 325 MG TAB PO (17:12)
[2018-01-29] MEDS: ATORVASTATIN 10 MG TAB PO (20:47)
[2018-01-30] MEDS: DEXTROSE 5%-0.45% NACL 1,000 ML IV (00:30)
[2018-01-30] MEDS: ALBUTEROL/IPRATROPIUM (NEB) 3 ML AMP HHN ×2 (02:00→08:02)
[2018-01-30] MEDS: INSULIN ASPART [NOVOLOG] 3 ML PEN SC ×2 (08:00→12:00)
[2018-01-30] MEDS: LUBIPROSTONE 24 MCG CAP PO (08:29)
[2018-01-30] MEDS: FAMOTIDINE 20 MG TAB PO (08:29)
[2018-01-30] MEDS: metFORMIN 850 MG TAB PO (08:29)
[2018-01-30] MEDS: DOCUSATE SODIUM 100 MG CAP PO (08:29)
[2018-01-30] MEDS: LISINOPRIL 20 MG TAB PO (08:30)
[2018-01-30] MEDS: METOPROLOL 25 MG TAB PO (08:30)
[2018-01-30] MEDS: NIFEdipine (XL) 30 MG TAB PO (08:30)
[2018-01-30] MEDS: POLYETHYLENE GLYCOL 17 GM PACKET PO (08:30)
[2018-01-30] MEDS: MUPIROCIN 2% 22 GM OINT TOP (08:31)
[2018-01-30] MEDS: MEMANTINE 10 MG TAB PO (08:31)
[2018-01-30] MEDS: ASPIRIN (EC) 81 MG TAB PO (08:43)
[2018-01-30] MEDS: ACETAMINOPHEN 325 MG TAB PO (12:12)
== END 2018-01-30 13:00 | DRG 872 ==
LOC: PP2 01-24 22:44 → E/R 13:58 → TEL 16:06
DX: A41.9 Sepsis, unspecified organism (principal); I50.32 Chronic diastolic (congestive) heart failure; E87.2 Acidosis; J20.9 Acute bronchitis, unspecified; I11.0 Hypertensive heart disease with heart failure; I48.0 Paroxysmal atrial fibrillation; E78.5 Hyperlipidemia, unspecified; E11.9 Type 2 diabetes mellitus without complications; F41.9 Anxiety disorder, unspecified; Z91.81 History of falling; Z22.322 Carrier or suspected carrier of Methicillin resistant Staphylococcus aureus; E87.6 Hypokalemia
CPT/HCPCS: 36415; 70450; 71045; 74176; 80048; 80053; 81001; 81003; 82550; 82553; 82962; 83036; 83605; 83735; 83880; 84145; 84146; 84443; 84484; 85025; 87040; 87081; 93005; 93306; 94640; 94664; 97110; 97163; 97530; 99285-25